=== PATIENT | female | born 1945 | race Caucasian/White ===

== ENCOUNTER → 2017-05-19 | Outpatient (CLI) | payer MEDICAID, MEDICARE ==
--- NOTE | 2017-05-19 10:34 | RADIOLOGY REPORT (SQ) ---
EXAM DESCRIPTION: CT CHEST WITHOUT COMPLETED DATE/TIME: 05/19/2017 9:55 am REASON FOR STUDY: THORACOC AORTIC ANEURYSM, WITHOUT RUPTURE I71.2 THORACIC AORTIC ANEURYSM, WITHOUT RUPTURE COMPARISON: 03/29/2016 TECHNIQUE: CT scan performed of the chest without intravenous contrast. Images reviewed with lung, soft tissue and bone windows. Reconstructed coronal and sagittal MPR images reviewed. All images st ored on PACS. All CT scanners at this facility use dose modulation, iterative reconstruction, and/or weight based d osing when appropriate to reduce radiation dose to as low as reasonably achievable (ALARA). [facility]: Dose Right [facility]: CareDose [facility]: Dose Right [facility]: Teradose 4D [facility]: Smart Mashable RADIATION DOSE: Up-to-date CT equipment and radiation dose reduction techniques were employed. CTDIv ol: 4.2 mGy. DLP: 158 mGy-cm. mGy. LIMITATIONS: No technical limitations. FINDINGS: LUNGS AND PLEURA: There is bilateral alveolar airspace disease in both upper lobes. This is new from prior study. This could be infectious or inflammatory. Pulmonary edema is thought to be less likely but not excluded. HILAR AND MEDIASTINAL STRUCTURES: No identified masses or abnormal nodes. No obvious aneurysm. HEART AND VASCULAR STRUCTURES: Heart size is stable. Aortic root is slightly dilated measured at 3.8 x 3.7 cm. This is unchanged. The patient has had prior coronary artery bypass grafting. Left subc lavian stent remains in place. Descending thoracic aorta demonstrates atherosclerotic change. There is mural thrombus. Largest diameter is 3.8 x 3.5 cm. UPPER ABDOMEN: No significant findings. Limited exam. THYROID AND OTHER SOFT TISSUES: No masses. No adenopathy. BONES: No significant finding. HARDWARE: As above. OTHER: No other significant findings. IMPRESSION: 1. Alveolar airspace disease in both upper lobes new from prior study. This could repre sent infectious or inflammatory less likely developing edema. 2. Atherosclerotic change in the thoracic aorta. Ascending aorta measures 3.8 x 3.7 cm. There is e ctasia of the descending thoracic aorta. Largest diameter is 3.8 x 3.5 cm. TECHNICAL DOCUMENTATION: JOB ID: [id number] Quality ID # [id number]: Final reports with documentation of one or more dose reduction techniques (e.g., Au tomated exposure control, adjustment of the mA and/or kV according to patient size, use of iterative reconstruction technique) 2010 1-4 [employer]- All Rights Reserved
== END ==
LOC: RAD 09:40
PROVIDERS: ATTEND Surgery
DX: I71.2 Thoracic aortic aneurysm, without rupture (principal)
CPT/HCPCS: 71250

== ENCOUNTER → 2017-05-26 | Outpatient (CLI) | payer MEDICARE, MEDICAID ==
--- NOTE | 2017-05-26 10:29 | WOMENS IMAGING REPORT ---
EXAM DESCRIPTION: BONE DENSITY HIP/SPINE COMPLETED DATE/TIME: 05/26/2017 10:07 am REASON FOR STUDY: SCREENING MAMMO; OSTEOPOROSIS Z12.31 ENCNTR SCREEN MAMMOGRAM FOR MALIGNANT NEOPLA SM OF DAMIEN M81.0 AGE-RELATED OSTEOPOROSIS W/O CURRENT PATHOLOGICAL FRAC COMPARISON: None. TECHNIQUE: Dual-Energy X-ray Absorptiometry (DEXA) of the AP Spine and Hip. LIMITATIONS: None. FINDINGS: LUMBAR SPINE: The bone mineral density (BMD) measured from L1-L4 in the AP projection correlates with a T-score of 1.3, which is normal as defined by the World Health Organization. HIP: The bone mineral density (BMD) measured in the left hip correlates with a T-score of -1.0 in the femo ral neck, which is osteopenia as defined by the World Health Organization. IMPRESSION: 1. LUMBAR SPINE: NORMAL. 2. HIP: OSTEOPENIA. COMMENT: The World Health Organization defines low BMD as follows: T-score: Normal: Greater than -1.0 Osteopenia: Between -1.0 and -2.5 Osteoporosis: Less than -2.5 without fractures Established osteoporosis: Less than -2.5 with fractures In general, you may wish to consider: Diagnosis Treatment Follow-up DEXA Normal BMD Prevention 2-3 years Osteopenia Prevention/Therapy 1-2 years Osteoporosis Therapy Yearly TECHNICAL DOCUMENTATION: JOB ID: [id number]- All Rights Reserved
== END ==
LOC: WI 08:05
PROVIDERS: ATTEND Physician Assistant
DX: Z12.31 Encounter for screening mammogram for malignant neoplasm of breast (principal); M81.0 Age-related osteoporosis without current pathological fracture
CPT/HCPCS: 77063; 77080; G0202; 77067

== ENCOUNTER 2017-11-22 10:54 | Inpatient (IN) | payer MEDICARE, MEDICAID ==
--- NOTE | 2017-11-22 11:22 | ER Document Report ---
ED Medical Screen (RME) - General Chief Complaint: Pain All Over Stated Complaint: LEFT SHOULDER PAIN Time Seen by Provider: 11/22/17 11:11 Notes: The patient is a 72-year-old female, past medical history CAD, prior CVA, hypertension, presents with left upper back pain for the past 2 days. She had similar symptoms when she said she had a heart attack. PE: Strong distal pulses. Tenderness over left rhomboid. 5/5 strength and sensation intact in all 4 extremities. Cranial Nerves intact. I have greeted and performed a rapid initial assessment of this patient. A comprehensive ED assessment and evaluation of the patient, analysis of test results and completion of the medical decision making process will be conducted by additional ED providers. TRAVEL OUTSIDE OF THE [place] IN LAST 30 DAYS: No Past Medical History - Social History Frequency of alcohol use: Occasional Drug Abuse: Marijuana - Past Medical History Cardiac Medical History: Reports: Hx Heart Attack - x5, bypass x 3, Hx Hypercholesterolemia, Hx Hypertension Endocrine Medical History: Reports: Hx Diabetes Mellitus Type 2 Renal/ Medical History: Denies: Hx Peritoneal Dialysis Past Surgical History: Reports: Hx Orthopedic Surgery - 4,5,6 disc removed Physical Exam - Vital signs Vitals: Temp Pulse Resp BP Pulse Ox 97.9 F 105 H 18 197/113 H 99 11/22/17 11:01 11/22/17 11:01 11/22/17 11:01 11/22/17 11:01 11/22/17 11:01 Course - Vital Signs Vital signs: Temp Pulse Resp BP Pulse Ox 97.9 F 105 H 18 197/113 H 99 11/22/17 11:01 11/22/17 11:01 11/22/17 11:01 11/22/17 11:01 11/22/17 11:01
[2017-11-22 11:46] LABS: ABSOLUTE BASOPHILS # (AUTO) 0.1 10^3/uL (0.0-0.2); ABSOLUTE EOSINOPHILS # (AUTO) 0.1 10^3/uL (0.0-0.6); ABSOLUTE LYMPHOCYTES (AUTO) 2.1 10^3/uL (0.5-4.7); ABSOLUTE MONOCYTES (AUTO) 0.7 10^3/uL (0.1-1.4); ABSOLUTE NEUT (AUTO) 5.2 10^3/uL (1.7-8.2); HEMATOCRIT 50.8 % (36.0-47.0); HEMOGLOBIN 17.2 g/dL (12.0-15.5); LYMPHOCYTES % (AUTO) 25.4 % (13-45); MEAN CORPUSCULAR HEMOGLOBIN 32.3 pg (27.0-33.4); MEAN CORPUSCULAR HGB CONC 33.8 g/dL (32.0-36.0); MEAN CORPUSCULAR VOLUME 96 fl (80-97); MONOCYTES % (AUTO) 8.4 % (3-13); PLATELET COUNT 306 10^3/uL (150-450); RED BLOOD COUNT 5.31 10^6/uL (3.72-5.28); RED CELL DISTRIBUTION WIDTH 14.1 % (11.5-14.0); SEGMENTED NEUTROPHILS % (AUTO) 64.2 % (42-78); TOTAL CELLS COUNTED % (AUTO) 100 %; WHITE BLOOD COUNT 8.1 10^3/uL (4.0-10.5)
[2017-11-22 12:07] LABS: ALANINE AMINOTRANSFERASE 20 U/L (9-52); ALBUMIN 4.6 g/dL (3.5-5.0); ALKALINE PHOSPHATASE 91 U/L (38-126); ANION GAP 13 (5-19); ASPARTATE AMINO TRANSFERASE 23 U/L (14-36); BILIRUBIN,DIRECT 0.5 mg/dL (0.0-0.4); BILIRUBIN,TOTAL 0.5 mg/dL (0.2-1.3); BLOOD UREA NITROGEN 19 mg/dL (7-20); CALCIUM 9.8 mg/dL (8.4-10.2); CARBON DIOXIDE 21 mmol/L (22-30); CHLORIDE 105 mmol/L (98-107); CREATINE KINASE 100 U/L (30-135); GLUCOSE 126 mg/dL (75-110); POTASSIUM 4.5 mmol/L (3.6-5.0); TOTAL PROTEIN 8.7 g/dL (6.3-8.2)
--- NOTE | 2017-11-22 12:08 | RADIOLOGY REPORT (SQ) ---
EXAM DESCRIPTION: CHEST 2 VIEWS COMPLETED DATE/TIME: 11/22/2017 11:43 am REASON FOR STUDY: chest pain COMPARISON: CT chest 05/19/2017 EXAM PARAMETERS: NUMBER OF VIEWS: two views TECHNIQUE: Digital Frontal and Lateral radiographic views of the chest acquired. RADIATION DOSE: NA LIMITATIONS: none FINDINGS: LUNGS AND PLEURA: No opacities, masses or pneumothorax. No pleural effusion. MEDIASTINUM AND HILAR STRUCTURES: No masses or contour abnormalities. HEART AND VASCULAR STRUCTURES: Heart normal size. No evidence for failure. BONES: No acute findings. HARDWARE: Old sternotomy and CABG OTHER: No other significant finding. IMPRESSION: NO ACUTE RADIOGRAPHIC FINDING IN THE CHEST. TECHNICAL DOCUMENTATION: JOB ID: [id number] [employer]- All Rights Reserved Reading location - IP/workstation name: [email or web address]
--- NOTE | 2017-11-22 13:55 | ER Document Report ---
ED General - General Chief Complaint: Pain All Over Stated Complaint: LEFT SHOULDER PAIN Time Seen by Provider: 11/22/17 11:11 Mode of Arrival: Ambulatory Information source: Patient Notes: 72-year-old female presents with complaints of left arm pain radiating across her chest just prior ot arrival. pt denies any fevers or chills, admit to a cough. TRAVEL OUTSIDE OF THE [place] IN LAST 30 DAYS: No - HPI Onset: Just prior to arrival Onset/Duration: Waxing and waning Quality of pain: Sharp Severity: Mild Pain Level: 1 Associated symptoms: Body/muscle aches, Chest pain Exacerbated by: Movement Relieved by: Denies Similar symptoms previously: No Recently seen / treated by doctor: No Past Medical History - Social History Smoking Status: Current Every Day Smoker Cigarette use (# per day): Yes Chew tobacco use (# tins/day): No Smoking Education Provided: No Frequency of alcohol use: Occasional Drug Abuse: Marijuana Family History: Reviewed & Not Pertinent Patient has suicidal ideation: No Patient has homicidal ideation: No - Past Medical History Cardiac Medical History: Reports: Hx Heart Attack - x5, bypass x 3, Hx Hypercholesterolemia, Hx Hypertension Endocrine Medical History: Reports: Hx Diabetes Mellitus Type 2 Renal/ Medical History: Denies: Hx Peritoneal Dialysis Past Surgical History: Reports: Hx Orthopedic Surgery - 4,5,6 disc removed Review of Systems - Review of Systems Notes: REVIEW OF SYSTEMS: CONSTITUTIONAL : Denies fever, chills, or sweats. Denies recent illness. EENT: Admits to neck pain rating to the shoulder blade CARDIOVASCULAR: admits to chest pain RESPIRATORY: admits t ocough . GASTROINTESTINAL: Denies abdominal pain or distention. Denies nausea, vomiting , or diarrhea. Denies blood in vomitus, stools, or per rectum. Denies black, tarry stools. Denies constipation. GENITOURINARY: Denies difficulty urinating, painful urination, burning, frequency, blood in urine, or discharge. FEMALE GENITOURINARY: Denies vaginal bleeding, heavy or abnormal periods, irregular periods. Denies vaginal discharge or odor. MUSCULOSKELETAL: Denies back or neck pain or stiffness. Denies joint pain or swelling. SKIN: Denies rash, lesions or sores. HEMATOLOGIC : Denies easy bruising or bleeding. LYMPHATIC: Denies swollen, enlarged glands. NEUROLOGICAL: Denies confusion or altered mental status. Denies passing out or loss of consciousness. Denies dizziness or lightheadedness. Denies headache. Denies weakness or paralysis or loss of use of either side. Denies problems with gait or speech. Denies sensory loss, numbness, or tingling. Denies seizures. PSYCHIATRIC: Denies anxiety or stress. Denies depression, suicidal ideation, or homicidal ideation. ALL OTHER SYSTEMS REVIEWED AND NEGATIVE. PHYSICAL EXAMINATION: GENERAL: Well-appearing, well-nourished and in no acute distress. HEAD: Atraumatic, normocephalic. EYES: Pupils equal round and reactive to light, extraocular movements intact, conjunctiva are normal. ENT: Nares patent, oropharynx clear without exudates. Moist mucous membranes. NECK: Normal range of motion, supple without lymphadenopathy there is tenderness upon palpation of the cervical region rating to the scapula LUNGS: Breath sounds clear to auscultation bilaterally and equal. No wheezes rales or rhonchi. HEART: Regular rate and rhythm without murmurs ABDOMEN: Soft, nontender, nondistended abdomen. No guarding, no rebound. No masses appreciated. Female : deferred Musculoskeletal: Normal range of motion, no pitting or edema. No cyanosis. NEUROLOGICAL: Cranial nerves grossly intact. Normal speech, normal gait. Normal sensory, motor exams PSYCH: Normal mood, normal affect. SKIN: Warm, Dry, normal turgor, no rashes or lesions noted. Dictation was performed using [employer] voice recognition software Physical Exam - Vital signs Vitals: Temp Pulse Resp BP Pulse Ox 97.9 F 105 H 18 197/113 H 99 11/22/17 11:01 11/22/17 11:01 11/22/17 11:01 11/22/17 11:01 11/22/17 11:01 Course - Re-evaluation Re-evalutation: 11/22/17 16:27 Patient's presentation is most consistent acute coronary syndrome, patient will be observed in the hospital overnight given her history and complaints. Patient otherwise is well-appearing no distress 11/22/17 16:33 - Vital Signs Vital signs: Temp Pulse Resp BP Pulse Ox 97.9 F 105 H 15 173/88 H 98 11/22/17 11:01 11/22/17 11:01 11/22/17 13:01 11/22/17 14:01 11/22/17 14:01 - Laboratory Result Diagrams: 11/22/17 11:30 11/22/17 11:30 Laboratory results interpreted by me: 11/22/17 11/22/17 11:30 11:30 RBC 5.31 H Hgb 17.2 H Hct 50.8 H RDW 14.1 H Carbon Dioxide 21 L Est GFR (Non-Af Amer) 57 L Glucose 126 H Direct Bilirubin 0.5 H Total Protein 8.7 H - Diagnostic Test Radiology reviewed: Image reviewed - Chest x-ray two-view no acute abnormality, Reports reviewed - EKG Interpretation by Me EKG shows normal: Sinus rhythm, [place], Intervals, QRS Complexes Discharge - Discharge Clinical Impression: Chest pain Qualifiers: Chest pain type: unspecified Qualified Code(s): R07.9 - Chest pain, unspecified Condition: Stable Disposition: ADMITTED OBSERVATION Admitting Provider: Adame Unit Admitted: Telemetry
--- NOTE | 2017-11-22 14:47 | RADIOLOGY REPORT (SQ) ---
EXAM DESCRIPTION: CTA CHEST COMPLETED DATE/TIME: 11/22/2017 2:26 pm REASON FOR STUDY: hx thoracic anuerysm COMPARISON: CT chest 05/19/2017, 03/29/2016 TECHNIQUE: CT scan of the chest performed using helical scanning technique with dynamic intravenous contrast injection. Images reviewed with lung, soft tissue and bone windows. Reconstructed coronal and sagittal MPR images reviewed. Additional 3 dimensional post-processing performed to develop Maximal Intensity Projection images (HI P). All images stored on PACS. All CT scanners at this facility use dose modulation, iterative reconstruction, and/or weight based d osing when appropriate to reduce radiation dose to as low as reasonably achievable (ALARA). [facility]: Dose Right [facility]: CareDose [facility]: Dose Right [facility]: Teradose 4D [facility]: BlueMessaging CONTRAST TYPE AND DOSE: contrast/concentration: Isovue 370.00 mg/ml; Total Contrast Delivered: 64.0 ml; Total Saline Delivered: 90.0 ml Contrast bolus optimized for the pulmonary arteries. Limited contrast enhancement of the thoracic ao rta. RENAL FUNCTION: Creatinine 0.96 RADIATION DOSE: CT Rad equipment meets quality standard of care and radiation dose reduction techniq ues were employed. CTDIvol: 14.3 - 19.8 mGy. DLP: 556 mGy-cm. . LIMITATIONS: None. FINDINGS: LUNGS AND PLEURA: In the right lower lobe, a malignant appearing 2.2 x 1.9 cm mass is pres ent, tapped between the anterior basal and medial basal bronchi and vessels. This is best shown on a xial image 82 and coronal image 35. Elsewhere in the lungs, there is bilateral upper lobe mild ground-glass opacity which could be seen i n edema or pneumonitis. Bandlike scarring is present in both posterior costophrenic sulci, stable. No pleural effusions. No pneumothorax. AORTA AND GREAT VESSELS: Left subclavian artery stent is present. Due to the limited contrast bolus, it is difficult to discern whether this stent is patent on today's exam. Ascending thoracic aorta 3 .7 cm in diameter, stable. Proximal and mid descending thoracic aorta 3 cm in diameter, above the ao rtic hiatus, greatest transverse diameter is 3.5 cm in size, similar compared to previous exams. Dis june thoracic aorta has a rind of mural thrombus without dissection. HEART: No pericardial effusion. Moderate coronary artery calcifications. Calcified aortic valve. Ol d sternotomy for CABG. PULMONARY ARTERIES: No emboli visualized in the main pulmonary arteries or the segmental branches. HILAR AND MEDIASTINAL STRUCTURES: Small precarinal and AP window lymph nodes are present less than 10 mm in short axis HARDWARE: Old sternotomy for CABG UPPER ABDOMEN: Right renal artery stent incompletely included in the field of view THYROID AND OTHER SOFT TISSUES: No masses. No adenopathy. BONES: No acute or significant finding. 3D MIPS: Confirm above findings. OTHER: No other significant finding. IMPRESSION: 2.2 x 1.9 cm mass in the lower right hilum/right lower lobe worrisome for malignancy Minimal ground-glass opacity in the upper lobes bilaterally, question pneumonitis or very mild pulmon sneha edema Ectatic distal thoracic aorta with a rind of mural thrombus. This is similar compared to previous st udies. COMMENT: Quality ID # [id number]: Final reports with documentation of one or more dose reduction techniques (e.g., Automated exposure control, adjustment of the mA and/or kV according to patient size, use of iterative reconstruction technique) TECHNICAL DOCUMENTATION: JOB ID: [id number] [employer]- All Rights Reserved Reading location - IP/workstation name: [facility]
[2017-11-22] MEDS ORDERED: ACETAMINOPHEN 325 MG TABLET PO PRN (15:02)
[2017-11-22] MEDS ORDERED: HYDRALAZINE HCL INJ/PF 20 MG/1 ML SDV IV PRN (15:08)
[2017-11-22] MEDS: LANSOPRAZOLE 15 MG TAB.RAP.DR PO SCH (16:08)
[2017-11-22] MEDS: IPRATROPIUM/ALBUTEROL 0.5-2.5 MG/3 ML AMPUL NEB SCH ×3 (16:08→23:52)
[2017-11-22 16:40] LABS: CREATINE KINASE MB 1.39 ng/mL (<4.55); TROPONIN I 0.013 ng/mL
--- NOTE | 2017-11-22 17:18 | PDOC CONSULTATION ---
Consultation Consult Date: 11/22/17 Attending physician:: DANE SMITH Consult reason:: Left lung mass History of Present Illness Admission Date/PCP: 11/22/17 14:31 DANE SMITH MD Patient complains of: Chest pain, SOB History of Present Illness: MIGUEL A WINSTON is a 72 year old female with known history of COPD, CAD, peripheral vascular disease, presents with 3 day history of chest pain, describes it under bilateral rib cage, viselike, also some pain in the left scapular area. She had a CT of the chest done, which indicated a 2.2 x 1.9 cm mass in the right lower lobe, of note she does have known history of aneurysm, and she had a CT of the chest to follow-up that in May 2017, and this area was not noted on that, I reviewed the images myself and did not see any evidence of that mass on that image. Of note, she does have elevated BP this morning, and she did have some family stressors ongoing over the last few days. Prior to this she did not really have continuous pain anywhere else, but she has had episodes of chest pain in the past that was noted to be cardiac in nature. She has not had any weight loss. No hemoptysis. Past Medical History Cardiac Medical History: Reports: Congestive Heart Failure, Coronary Artery Disease, Myocardial Infarction - x5, bypass x 3, Hyperlipidema, Hypertension, Peripheral Vascular Disease Pulmonary Medical History: Reports: Chronic Obstructive Pulmonary Disease (COPD) , Pneumonia Neurological Medical History: Reports: Ischemic CVA Endocrine Medical History: Reports: Diabetes Mellitus Type 2 GI Medical History: Reports: Gastroesophageal Reflux Disease Musculoskeltal Medical History: Reports: Arthritis Psychiatric Medical History: Reports: Depression Past Surgical History Past Surgical History: Reports: Orthopedic Surgery - 4,5,6 disc removed Social History Smoking Status: Current Every Day Smoker Cigarettes Packs Per Day: 2 Number of Years Smokin Frequency of Alcohol Use: None Hx Recreational Drug Use: No Drugs: None Hx Prescription Drug Abuse: No Family History Family History: Reviewed & Not Pertinent Parental Family History Reviewed: Yes Children Family History Reviewed: Yes Sibling(s) Family History Reviewed.: Yes Medication/Allergy Home Medications: Aspirin [Aspirin EC] 81 mg PO DAILY 11/22/17 Atorvastatin Calcium 20 mg PO DAILY 11/22/17 Carvedilol [Coreg 6.25 mg Tablet] 6.25 mg PO Q12 11/22/17 Clopidogrel Bisulfate [Plavix 75 mg Tablet] 75 mg PO DAILY 11/22/17 Levothyroxine Sodium 112 mcg PO DAILY 11/22/17 Metoprolol Tartrate 12.5 mg PO DAILY 11/22/17 Review of Systems Constitutional: PRESENT: fatigue, weakness Cardiovascular: PRESENT: chest pain, dyspnea on exertion Respiratory: PRESENT: dyspnea Gastrointestinal: ABSENT: abdominal pain, constipation, diarrhea, hematemesis, hematochezia, nausea, vomiting Musculoskeletal: PRESENT: back pain Neurological: ABSENT: abnormal gait, abnormal speech, confusion, dizziness, focal weakness, syncope Endocrine: ABSENT: cold intolerance, heat intolerance, polydipsia, polyuria Physical Exam Vital Signs: Temp Pulse Resp BP Pulse Ox 97.9 F 105 H 18 153/136 H 98 11/22/17 11:01 11/22/17 11:01 11/22/17 16:49 11/22/17 16:49 11/22/17 16:49 General appearance: PRESENT: no acute distress, well-developed, well-nourished Head exam: PRESENT: atraumatic, normocephalic Eye exam: PRESENT: conjunctiva pink, EOMI, PERRLA. ABSENT: scleral icterus Ear exam: PRESENT: normal external ear exam Mouth exam: PRESENT: moist, tongue midline Neck exam: ABSENT: carotid bruit, JVD, lymphadenopathy, thyromegaly Respiratory exam: PRESENT: clear to auscultation nasreen. ABSENT: rales, rhonchi, wheezes Cardiovascular exam: PRESENT: RRR. ABSENT: diastolic murmur, rubs, systolic murmur Pulses: PRESENT: normal dorsalis pedis pul Vascular exam: PRESENT: normal capillary refill GI/Abdominal exam: PRESENT: normal bowel sounds, soft. ABSENT: distended, guarding, mass, organolmegaly, rebound, tenderness Rectal exam: PRESENT: deferred Extremities exam: PRESENT: full ROM. ABSENT: calf tenderness, clubbing, pedal edema Neurological exam: PRESENT: alert, awake, oriented to person, oriented to place , oriented to time, oriented to situation, CN II-XII grossly intact. ABSENT: motor sensory deficit Psychiatric exam: PRESENT: appropriate affect, normal mood. ABSENT: homicidal ideation, suicidal ideation Skin exam: PRESENT: dry, intact, warm. ABSENT: cyanosis, rash Results Laboratory Results: 11/22/17 15:45 TSH 41.30 H 11/22/17 11/22/17 15:45 15:45 Creatine Kinase 110 CK-MB (CK-2) 1.39 Troponin I 0.013 Impressions: Chest X-Ray 11/22/17 11:19 IMPRESSION: NO ACUTE RADIOGRAPHIC FINDING IN THE CHEST. Chest/Abdomen CTA 11/22/17 13:58 IMPRESSION: 2.2 x 1.9 cm mass in the lower right hilum/right lower lobe worrisome for malignancy Minimal ground-glass opacity in the upper lobes bilaterally, question pneumonitis or very mild pulmonary edema Ectatic distal thoracic aorta with a rind of mural thrombus. This is similar compared to previous studies. Status: Image reviewed by me Assessment & Plan - Diagnosis (1) Lung mass Is this a current diagnosis for this admission?: Yes Plan: Patient with newly noted right lower lobe mass, given her strong smoking history , concerning for primary lung cancer, she is having chest pain, I do not believe this is related to the lesion itself, may be cardiac or lung in origin, possibly pneumonitis versus a pneumonia. All of these possibilities have to be treated, would agree with steroid and/or antibiotic use along with continued cardiac evaluation. Once this is stabilized, I believe we can proceed forward with consideration of procedure for the lung mass, would consider primary bronchoscopy. As outpatient we can also order a PET CT to further evaluate and fully stage. Ultimately she would benefit from an MRI of the brain to complete staging. However all of this can be done once the acute chest pain is evaluated and taken care of. I will order some oxycodone for her. - Time Time Spent: Greater than 70 Minutes - Inpatient Certification Based on my medical assessment, after consideration of the patient's comorbidities, presenting symptoms, or acuity I expect that the services needed warrant INPATIENT care.: Yes I certify that my determination is in accordance with my understanding of Medicare's requirements for reasonable and necessary INPATIENT services [42 CFR 412.3e].: Yes Medical Necessity: Need Close Monitoring Due to Risk of Patient Decompensation, Need For Continuous Telemetry Monitoring, Need for Pain Control, Risk of Complication if Not Cared For in Hospital
--- NOTE | 2017-11-22 17:29 | PDOC H&P ---
History of Present Illness Admission Date/PCP: 11/22/17 14:31 DANE SMITH MD Patient complains of: Left-sided chest pain History of Present Illness: MIGUEL A WINSTON is a 72 year old female This is a 72-year-old female with a significant history of the coronary artery disease status post stent placements and status post bypass surgery very noncompliance used to see a [facility] and also history of the significant carotid artery disease status post carotid endarterectomyAnd a history of peripheral vascular disease status post femoropopliteal bypassHistory of the COPD and a continued smoker despite off so many times discussed with the patient and the daughter about multiple comorbidity with continued smoking causing the more complications but patients pretty much do not want to quit the smokingHistory of the thoracic aneurysm and currently [facility] [place] [facility] with the complaining of left mid back and chest pain and feel like when patient had a heart attacks in the past Initial workup including the EKG and cardiac enzymes 1 is negative and patient have a CT angiogram was done which is negative for any change in the thoracic aneurysm but patient have a new lung mass which is not that the CT of the chest in May 2017 Patient is currently denied any chest pain denied any shortness of the breath pt is very depressd and anxoius due to recent in family and not taking med as rx Past Medical History Cardiac Medical History: Reports: Congestive Heart Failure, Coronary Artery Disease, Myocardial Infarction - x5, bypass x 3, Hyperlipidema, Hypertension, Peripheral Vascular Disease Pulmonary Medical History: Reports: Chronic Obstructive Pulmonary Disease (COPD) , Pneumonia Neurological Medical History: Reports: Ischemic CVA Endocrine Medical History: Reports: Diabetes Mellitus Type 2 GI Medical History: Reports: Gastroesophageal Reflux Disease Musculoskeltal Medical History: Reports: Arthritis Psychiatric Medical History: Reports: Depression Past Surgical History Past Surgical History: Reports: Orthopedic Surgery - 4,5,6 disc removed Social History Smoking Status: Current Every Day Smoker Family History Family History: None, Reviewed & Not Pertinent Parental Family History Reviewed: Yes Children Family History Reviewed: Yes Sibling(s) Family History Reviewed.: Yes Medication/Allergy Home Medications: Aspirin [Aspirin EC] 81 mg PO DAILY 11/22/17 Atorvastatin Calcium 20 mg PO DAILY 11/22/17 Carvedilol [Coreg 6.25 mg Tablet] 6.25 mg PO Q12 11/22/17 Clopidogrel Bisulfate [Plavix 75 mg Tablet] 75 mg PO DAILY 11/22/17 Levothyroxine Sodium 112 mcg PO DAILY 11/22/17 Metoprolol Tartrate 12.5 mg PO DAILY 11/22/17 Review of Systems Constitutional: PRESENT: fatigue, weakness. ABSENT: chills, fever(s), headache( s), weight gain, weight loss Eyes: ABSENT: visual disturbances Ears: ABSENT: hearing changes Cardiovascular: PRESENT: chest pain. ABSENT: dyspnea on exertion, edema, orthropnea, palpitations Respiratory: ABSENT: cough, hemoptysis Gastrointestinal: ABSENT: abdominal pain, constipation, diarrhea, hematemesis, hematochezia, nausea, vomiting Genitourinary: ABSENT: dysuria, hematuria Musculoskeletal: ABSENT: joint swelling Integumentary: ABSENT: rash, wounds Neurological: ABSENT: abnormal gait, abnormal speech, confusion, dizziness, focal weakness, syncope Psychiatric: ABSENT: anxiety, depression, homidical ideation, suicidal ideation Endocrine: ABSENT: cold intolerance, heat intolerance, menstrual abnormalities, polydipsia, polyuria Hematologic/Lymphatic: ABSENT: easy bleeding, easy bruising, lymphadenopathy Physical Exam Vital Signs: Temp Pulse Resp BP Pulse Ox 97.9 F 105 H 15 173/88 H 98 11/22/17 11:01 11/22/17 11:01 11/22/17 13:01 11/22/17 14:01 11/22/17 14:01 General appearance: PRESENT: no acute distress, well-developed, well-nourished Head exam: PRESENT: atraumatic, normocephalic Eye exam: PRESENT: conjunctiva pink, EOMI, PERRLA. ABSENT: scleral icterus Ear exam: PRESENT: normal external ear exam Mouth exam: PRESENT: moist, tongue midline Neck exam: PRESENT: full ROM. ABSENT: carotid bruit, JVD, lymphadenopathy, thyromegaly Respiratory exam: PRESENT: chest wall tenderness, clear to auscultation nasreen Cardiovascular exam: PRESENT: RRR. ABSENT: diastolic murmur, rubs, systolic murmur Pulses: PRESENT: normal dorsalis pedis pul, +2 pedal pulses bilateral Vascular exam: PRESENT: normal capillary refill GI/Abdominal exam: PRESENT: normal bowel sounds, soft. ABSENT: distended, guarding, mass, organolmegaly, rebound, tenderness Rectal exam: PRESENT: deferred Extremities exam: ABSENT: pedal edema Neurological exam: PRESENT: alert, awake, oriented to person, oriented to place , oriented to time, oriented to situation, CN II-XII grossly intact. ABSENT: motor sensory deficit Psychiatric exam: PRESENT: appropriate affect, normal mood. ABSENT: homicidal ideation, suicidal ideation Skin exam: PRESENT: dry, intact, warm. ABSENT: cyanosis, rash Results Impressions: Chest X-Ray 11/22/17 11:19 IMPRESSION: NO ACUTE RADIOGRAPHIC FINDING IN THE CHEST. Chest/Abdomen CTA 11/22/17 13:58 IMPRESSION: 2.2 x 1.9 cm mass in the lower right hilum/right lower lobe worrisome for malignancy Minimal ground-glass opacity in the upper lobes bilaterally, question pneumonitis or very mild pulmonary edema Ectatic distal thoracic aorta with a rind of mural thrombus. This is similar compared to previous studies. Assessment & Plan - Diagnosis (1) Chest pain Qualifiers: Chest pain type: unspecified Qualified Code(s): R07.9 - Chest pain, unspecified Is this a current diagnosis for this admission?: Yes Plan: The multiple comorbidity admit the patient in IMCU consult the cardiology rule out the acute coronary syndrome (2) Coronary artery disease Qualifiers: Coronary Disease-Associated Artery/Lesion type: unspecified vessel or lesion type Associated angina: without angina Is this a current diagnosis for this admission?: Yes Plan: Patient had a history of the stent placements and also history of the bypass surgery in 2011 patients in my record last seen in 2016 at the [facility] and had a stress test and echo was done was all stable with the patient's EF was 25-30 persons (3) Thoracic aneurysm without mention of rupture Qualifiers: Presence of rupture: without rupture Qualified Code(s): I71.2 - Thoracic aortic aneurysm, without rupture Is this a current diagnosis for this admission?: Yes Plan: Currently CT angiogram is stable (4) Lung mass Is this a current diagnosis for this admission?: Yes Plan: We consult the pulmonary and oncology for further evaluations (5) Chronic obstructive pulmonary disease Qualifiers: COPD type: unspecified COPD Qualified Code(s): J44.9 - Chronic obstructive pulmonary disease, unspecified Is this a current diagnosis for this admission?: Yes Plan: Continues to nebulizer treatments (6) Peripheral vascular disease Is this a current diagnosis for this admission?: Yes Plan: Patient's currently followed at [facility] (7) Carotid artery disease Qualifiers: Laterality: unspecified laterality Qualified Code(s): I77.9 - Disorder of arteries and arterioles, unspecified Is this a current diagnosis for this admission?: Yes Plan: Status post surgery currently follow vascular surgery in [place] (8) Cerebrovascular disease Is this a current diagnosis for this admission?: Yes Plan: Continues to aspirin Plavix (9) Renal artery stenosis Is this a current diagnosis for this admission?: Yes Plan: Status post stent placement at [place] last year (10) Hypertension Qualifiers: Hypertension type: essential hypertension Qualified Code(s): I10 - Essential (primary) hypertension Is this a current diagnosis for this admission?: Yes (11) Hyperlipidemia Qualifiers: Hyperlipidemia type: unspecified Qualified Code(s): E78.5 - Hyperlipidemia , unspecified Is this a current diagnosis for this admission?: Yes Plan: We will check the LDL (12) Congestive heart failure Qualifiers: Heart failure type: systolic Heart failure chronicity: chronic Qualified Code(s): I50.22 - Chronic systolic (congestive) heart failure Is this a current diagnosis for this admission?: Yes Plan: Patient's last echo in my record was 30% will consult the cardiology (13) Non compliance with medical treatment Is this a current diagnosis for this admission?: Yes Plan: pt is very non complience and not taking med since last 1 wk and also cont smoke and not f/u consulted as need - Time Time Spent: 30 to 50 Minutes Medications reviewed and adjusted accordingly: Yes Anticipated discharge: Other Within: Other - Inpatient Certification Medical Necessity: Need Close Monitoring Due to Risk of Patient Decompensation Post Hospital Care: D/C [employer] Documentation - Plan Summary Plan Summary: Discussed with the patient and the daughter regarding the patient's current conditions and coordinate care d/w pt and daughter and pt want to dnr/dni
[2017-11-22] MEDS: OXYCODONE HCL IR 5 MG TABLET PO PRN (18:09)
[2017-11-22] MEDS: AMLODIPINE BESYLATE 5 MG TABLET PO SCH (18:17)
--- NOTE | 2017-11-22 21:40 | EKG REPORT ---
SEVERITY:- ABNORMAL ECG - SINUS RHYTHM BIATRIAL ABNORMALITIES INFERIOR INFARCT, AGE INDETERMINATE : Confirmed by: Dom Rodriguez 22-Nov-2017 21:40:09
[2017-11-22] MEDS ORDERED: LOSARTAN POTASSIUM 25 MG TABLET PO SCH (22:00)
[2017-11-22 22:03] LABS: CREATINE KINASE MB 1.67 ng/mL (<4.55); TROPONIN I 0.017 ng/mL
[2017-11-22] MEDS: CARVEDILOL 6.25 MG TABLET PO SCH (22:24)
[2017-11-22] MEDS: HEPARIN SOD (PORCINE) 5,000 UNIT/ML 1 ML SYRINGE SUBCUT SCH (22:25)
[2017-11-22] MEDS: CEFEPIME 1 GM/D5W RTU 1 GM/50 ML RTUPB IV SCH (22:25)
[2017-11-23] MEDS: OXYCODONE HCL IR 5 MG TABLET PO PRN (02:18)
[2017-11-23 03:46] LABS: ALANINE AMINOTRANSFERASE 28 U/L (9-52); ALBUMIN 3.9 g/dL (3.5-5.0); ALKALINE PHOSPHATASE 67 U/L (38-126); ANION GAP 12 (5-19); ASPARTATE AMINO TRANSFERASE 16 U/L (14-36); BILIRUBIN,DIRECT 0.3 mg/dL (0.0-0.4); BILIRUBIN,TOTAL 0.3 mg/dL (0.2-1.3); BLOOD UREA NITROGEN 19 mg/dL (7-20); CALCIUM 9.3 mg/dL (8.4-10.2); CARBON DIOXIDE 20 mmol/L (22-30); CHLORIDE 107 mmol/L (98-107); CREATINE KINASE 109 U/L (30-135); GLUCOSE 113 mg/dL (75-110); POTASSIUM 4.4 mmol/L (3.6-5.0); SODIUM 138.9 mmol/L (137-145); TOTAL PROTEIN 6.6 g/dL (6.3-8.2)
[2017-11-23 03:58] LABS: CREATINE KINASE MB 1.58 ng/mL (<4.55); TROPONIN I 0.016 ng/mL
[2017-11-23] MEDS: IPRATROPIUM/ALBUTEROL 0.5-2.5 MG/3 ML AMPUL NEB SCH ×6 (04:26→23:57)
[2017-11-23 04:59] LABS: ABSOLUTE BASOPHILS # (AUTO) 0.1 10^3/uL (0.0-0.2); ABSOLUTE EOSINOPHILS # (AUTO) 0.1 10^3/uL (0.0-0.6); ABSOLUTE LYMPHOCYTES (AUTO) 1.8 10^3/uL (0.5-4.7); ABSOLUTE MONOCYTES (AUTO) 0.6 10^3/uL (0.1-1.4); ABSOLUTE NEUT (AUTO) 3.2 10^3/uL (1.7-8.2); BASOPHILS % (AUTO) 1.1 % (0-2); HEMATOCRIT 42.2 % (36.0-47.0); LYMPHOCYTES % (AUTO) 31.2 % (13-45); MEAN CORPUSCULAR HEMOGLOBIN 32.8 pg (27.0-33.4); MEAN CORPUSCULAR HGB CONC 34.1 g/dL (32.0-36.0); MEAN CORPUSCULAR VOLUME 96 fl (80-97); MONOCYTES % (AUTO) 10.5 % (3-13); PLATELET COUNT 262 10^3/uL (150-450); RED BLOOD COUNT 4.39 10^6/uL (3.72-5.28); SEGMENTED NEUTROPHILS % (AUTO) 56.2 % (42-78); TOTAL CELLS COUNTED % (AUTO) 100 %; WHITE BLOOD COUNT 5.6 10^3/uL (4.0-10.5)
[2017-11-23 05:16] LABS: HEMOGLOBIN 14.4 g/dL (12.0-15.5)
[2017-11-23] MEDS: HEPARIN SOD (PORCINE) 5,000 UNIT/ML 1 ML SYRINGE SUBCUT SCH ×3 (06:09→21:35)
[2017-11-23] MEDS: LEVOTHYROXINE SODIUM 0.112 MG TABLET PO SCH (06:12)
[2017-11-23] MEDS: LANSOPRAZOLE 15 MG TAB.RAP.DR PO SCH ×2 (06:12→17:03)
--- NOTE | 2017-11-23 08:09 | PDOC PROGRESS REPORT ---
Subjective Progress Note for:: 11/23/17 Subjective:: Patient states that her pain is half as bad as it was yesterday. Pain is deep in the Left lower posterior chest and across anterior upper ribcage. She is hungry and is awaiting breakfast. She states that every time she gets out of bed, her blood pressure goes john high and that they are "working on this." Reason For Visit: CHEST PAIN/LUNG MASS Physical Exam Vital Signs: Temp Pulse Resp BP Pulse Ox 97.9 F 67 18 104/81 97 11/23/17 04:09 11/23/17 07:00 11/23/17 04:27 11/23/17 04:09 11/23/17 04:27 Intake & Output 11/22/17 11/23/17 11/24/17 06:59 06:59 06:59 Intake Total 560 Balance 560 Weight 64.1 kg General appearance: PRESENT: no acute distress Respiratory exam: PRESENT: clear to auscultation nasreen, unlabored Cardiovascular exam: PRESENT: other - Obscured but appears regular. GI/Abdominal exam: PRESENT: soft. ABSENT: tenderness Neurological exam: PRESENT: alert, awake. ABSENT: motor sensory deficit Psychiatric exam: PRESENT: appropriate affect Skin exam: PRESENT: normal color Results Laboratory Results: 11/23/17 04:40 11/23/17 03:26 11/22/17 11/23/17 11/23/17 15:45 03:26 03:26 WBC Cancelled RBC Cancelled Hgb Cancelled Hct Cancelled MCV Cancelled MCH Cancelled MCHC Cancelled RDW Cancelled Plt Count Cancelled Seg Neutrophils % Cancelled Lymphocytes % Cancelled Monocytes % Cancelled Eosinophils % Cancelled Basophils % Cancelled Absolute Neutrophils Cancelled Absolute Lymphocytes Cancelled Absolute Monocytes Cancelled Absolute Eosinophils Cancelled Absolute Basophils Cancelled Sodium 138.9 Potassium 4.4 Chloride 107 Carbon Dioxide 20 L Anion Gap 12 BUN 19 Creatinine 0.96 Est GFR ( Amer) > 60 Est GFR (Non-Af Amer) 57 L Glucose 113 H Calcium 9.3 Total Bilirubin 0.3 AST 16 ALT 28 Alkaline Phosphatase 67 Total Protein 6.6 Albumin 3.9 TSH 41.30 H 11/23/17 04:40 WBC 5.6 RBC 4.39 Hgb 14.4 D Hct 42.2 MCV 96 MCH 32.8 MCHC 34.1 RDW 14.0 Plt Count 262 Seg Neutrophils % 56.2 Lymphocytes % 31.2 Monocytes % 10.5 Eosinophils % 1.0 Basophils % 1.1 Absolute Neutrophils 3.2 Absolute Lymphocytes 1.8 Absolute Monocytes 0.6 Absolute Eosinophils 0.1 Absolute Basophils 0.1 Sodium Potassium Chloride Carbon Dioxide Anion Gap BUN Creatinine Est GFR ( Amer) Est GFR (Non-Af Amer) Glucose Calcium Total Bilirubin AST ALT Alkaline Phosphatase Total Protein Albumin TSH 11/22/17 11/22/17 11/22/17 15:45 15:45 21:20 Creatine Kinase 110 113 CK-MB (CK-2) 1.39 Troponin I 0.013 NT-Pro-B Natriuret Pep 11/22/17 11/23/17 11/23/17 21:20 03:26 03:26 Creatine Kinase 109 CK-MB (CK-2) 1.67 1.58 Troponin I 0.017 0.016 NT-Pro-B Natriuret Pep 3290 H Impressions: Chest X-Ray 11/22/17 11:19 IMPRESSION: NO ACUTE RADIOGRAPHIC FINDING IN THE CHEST. Chest/Abdomen CTA 11/22/17 13:58 IMPRESSION: 2.2 x 1.9 cm mass in the lower right hilum/right lower lobe worrisome for malignancy Minimal ground-glass opacity in the upper lobes bilaterally, question pneumonitis or very mild pulmonary edema Ectatic distal thoracic aorta with a rind of mural thrombus. This is similar compared to previous studies. Assessment & Plan - Diagnosis (1) Lung mass Is this a current diagnosis for this admission?: Yes Plan: Agree with plans for bronchoscopy once cardiac status is stable. Further staging can be performed as outpatient. (2) Chest pain Qualifiers: Chest pain type: unspecified Qualified Code(s): R07.9 - Chest pain, unspecified Is this a current diagnosis for this admission?: Yes Plan: Improving. SHe remains on antibiotics and pain medications. - Plan Summary Plan Summary: Will continue to follow. Please call with concerns.
--- NOTE | 2017-11-23 08:24 | PDOC PROGRESS REPORT ---
Subjective Progress Note for:: 11/23/17 Subjective:: Patient is currently doing well in the chest wall pain is all getting better Patient's denied any short of breath denied any headache denied any dizziness Patient's blood pressure is coming down to the 110 range Patient's denied any blood in the stools no black stools Reason For Visit: CHEST PAIN/LUNG MASS Physical Exam Vital Signs: Temp Pulse Resp BP Pulse Ox 98.1 F 75 16 121/53 L 100 11/23/17 08:03 11/23/17 08:03 11/23/17 08:03 11/23/17 08:03 11/23/17 08:03 Intake & Output 11/22/17 11/23/17 11/24/17 06:59 06:59 06:59 Intake Total 560 Balance 560 Weight 64.1 kg General appearance: PRESENT: no acute distress, well-developed, well-nourished Head exam: PRESENT: atraumatic, normocephalic Eye exam: PRESENT: conjunctiva pink, EOMI, PERRLA. ABSENT: scleral icterus Ear exam: PRESENT: normal external ear exam Mouth exam: PRESENT: moist, tongue midline Neck exam: PRESENT: full ROM. ABSENT: carotid bruit, JVD, lymphadenopathy, thyromegaly Respiratory exam: PRESENT: clear to auscultation nasreen Cardiovascular exam: PRESENT: RRR. ABSENT: diastolic murmur, rubs, systolic murmur Pulses: PRESENT: normal dorsalis pedis pul, +2 pedal pulses bilateral Vascular exam: PRESENT: normal capillary refill GI/Abdominal exam: PRESENT: normal bowel sounds, soft. ABSENT: distended, guarding, mass, organolmegaly, rebound, tenderness Rectal exam: PRESENT: deferred Extremities exam: ABSENT: pedal edema Musculoskeletal exam: PRESENT: ambulatory Neurological exam: PRESENT: alert, awake, oriented to person, oriented to place , oriented to time, oriented to situation, CN II-XII grossly intact. ABSENT: motor sensory deficit Psychiatric exam: PRESENT: appropriate affect, normal mood. ABSENT: homicidal ideation, suicidal ideation Skin exam: PRESENT: dry, intact, warm. ABSENT: cyanosis, rash Results Laboratory Results: 11/23/17 04:40 11/23/17 03:26 11/22/17 11/23/17 11/23/17 15:45 03:26 03:26 WBC Cancelled RBC Cancelled Hgb Cancelled Hct Cancelled MCV Cancelled MCH Cancelled MCHC Cancelled RDW Cancelled Plt Count Cancelled Seg Neutrophils % Cancelled Lymphocytes % Cancelled Monocytes % Cancelled Eosinophils % Cancelled Basophils % Cancelled Absolute Neutrophils Cancelled Absolute Lymphocytes Cancelled Absolute Monocytes Cancelled Absolute Eosinophils Cancelled Absolute Basophils Cancelled Sodium 138.9 Potassium 4.4 Chloride 107 Carbon Dioxide 20 L Anion Gap 12 BUN 19 Creatinine 0.96 Est GFR ( Amer) > 60 Est GFR (Non-Af Amer) 57 L Glucose 113 H Calcium 9.3 Total Bilirubin 0.3 AST 16 ALT 28 Alkaline Phosphatase 67 Total Protein 6.6 Albumin 3.9 TSH 41.30 H 11/23/17 04:40 WBC 5.6 RBC 4.39 Hgb 14.4 D Hct 42.2 MCV 96 MCH 32.8 MCHC 34.1 RDW 14.0 Plt Count 262 Seg Neutrophils % 56.2 Lymphocytes % 31.2 Monocytes % 10.5 Eosinophils % 1.0 Basophils % 1.1 Absolute Neutrophils 3.2 Absolute Lymphocytes 1.8 Absolute Monocytes 0.6 Absolute Eosinophils 0.1 Absolute Basophils 0.1 Sodium Potassium Chloride Carbon Dioxide Anion Gap BUN Creatinine Est GFR ( Amer) Est GFR (Non-Af Amer) Glucose Calcium Total Bilirubin AST ALT Alkaline Phosphatase Total Protein Albumin TSH 11/22/17 11/22/17 11/22/17 15:45 15:45 21:20 Creatine Kinase 110 113 CK-MB (CK-2) 1.39 Troponin I 0.013 NT-Pro-B Natriuret Pep 11/22/17 11/23/17 11/23/17 21:20 03:26 03:26 Creatine Kinase 109 CK-MB (CK-2) 1.67 1.58 Troponin I 0.017 0.016 NT-Pro-B Natriuret Pep 3290 H Impressions: Chest X-Ray 11/22/17 11:19 IMPRESSION: NO ACUTE RADIOGRAPHIC FINDING IN THE CHEST. Chest/Abdomen CTA 11/22/17 13:58 IMPRESSION: 2.2 x 1.9 cm mass in the lower right hilum/right lower lobe worrisome for malignancy Minimal ground-glass opacity in the upper lobes bilaterally, question pneumonitis or very mild pulmonary edema Ectatic distal thoracic aorta with a rind of mural thrombus. This is similar compared to previous studies. Assessment & Plan - Diagnosis (1) Chest pain Qualifiers: Chest pain type: unspecified Qualified Code(s): R07.9 - Chest pain, unspecified Is this a current diagnosis for this admission?: Yes Plan: So far cardiac enzymes are negative still patient on multiple risk factor for coronary disease will continues to follow with the cardiology (2) Coronary artery disease Qualifiers: Coronary Disease-Associated Artery/Lesion type: unspecified vessel or lesion type Associated angina: without angina Is this a current diagnosis for this admission?: Yes Plan: Patient had a history of the stent placements and also history of the bypass surgery in 2011 patients in my record last seen in 2016 at the [facility] and had a stress test and echo was done was all stable with the patient's EF was 25-30 persons (3) Thoracic aneurysm without mention of rupture Qualifiers: Presence of rupture: without rupture Qualified Code(s): I71.2 - Thoracic aortic aneurysm, without rupture Is this a current diagnosis for this admission?: Yes Plan: Optimize the blood pressure was controlled (4) Lung mass Is this a current diagnosis for this admission?: Yes Plan: Follow with the pulmonary and oncology (5) Chronic obstructive pulmonary disease Qualifiers: COPD type: unspecified COPD Qualified Code(s): J44.9 - Chronic obstructive pulmonary disease, unspecified Is this a current diagnosis for this admission?: Yes Plan: Continues to nebulizer treatments (6) Peripheral vascular disease Is this a current diagnosis for this admission?: Yes Plan: Patient's currently followed at [facility] (7) Carotid artery disease Qualifiers: Laterality: unspecified laterality Qualified Code(s): I77.9 - Disorder of arteries and arterioles, unspecified Is this a current diagnosis for this admission?: Yes Plan: Status post surgery currently follow vascular surgery in [place] (8) Cerebrovascular disease Is this a current diagnosis for this admission?: Yes Plan: Continues to aspirin Plavix (9) Renal artery stenosis Is this a current diagnosis for this admission?: Yes Plan: Status post stent placement at [facility] last year (10) Hypertension Qualifiers: Hypertension type: essential hypertension Qualified Code(s): I10 - Essential (primary) hypertension Is this a current diagnosis for this admission?: Yes Plan: Keep a blood pressure 110-120 range adjust the medications (11) Hyperlipidemia Qualifiers: Hyperlipidemia type: unspecified Qualified Code(s): E78.5 - Hyperlipidemia , unspecified Is this a current diagnosis for this admission?: Yes Plan: We will check the LDL (12) Congestive heart failure Qualifiers: Heart failure type: systolic Heart failure chronicity: chronic Qualified Code(s): I50.22 - Chronic systolic (congestive) heart failure Is this a current diagnosis for this admission?: Yes Plan: Patient's last echo in my record was 30% will consult the cardiology (13) Non compliance with medical treatment Is this a current diagnosis for this admission?: Yes - Time Time Spent with patient: 15-24 minutes Medications reviewed and adjusted accordingly: Yes Within: Other - Inpatient Certification Medical Necessity: Need Close Monitoring Due to Risk of Patient Decompensation, Need for IV Antibiotics Post Hospital Care: D/C [facility] Documentation - Plan Summary Plan Summary: Continues current medicationsContinues to have antibiotic presumed pneumonitis
[2017-11-23] MEDS: ATORVASTATIN CALCIUM 20 MG TABLET PO SCH (09:34)
[2017-11-23] MEDS: CARVEDILOL 6.25 MG TABLET PO SCH ×2 (09:34→21:49)
[2017-11-23] MEDS: LOSARTAN POTASSIUM 25 MG TABLET PO SCH (09:35)
[2017-11-23] MEDS: CEFEPIME 1 GM/D5W RTU 1 GM/50 ML RTUPB IV SCH ×2 (09:35→21:34)
--- NOTE | 2017-11-23 09:44 | EKG REPORT ---
SEVERITY:- ABNORMAL ECG - SINUS RHYTHM INFERIOR INFARCT, OLD NONSPECIFIC T ABNORMALITIES, ANT-LAT LEADS : Confirmed by: Dom Rodriguez 23-Nov-2017 09:44:03
[2017-11-23] MEDS ORDERED: CLOPIDOGREL BISULFATE 75 MG TABLET PO SCH (10:00)
[2017-11-23] MEDS ORDERED: ASPIRIN 81 MG TABLET, ENT COATED PO SCH (10:00)
[2017-11-23] MEDS ORDERED: METOPROLOL TARTRATE 25 MG TABLET PO SCH (10:00)
[2017-11-23] MEDS ORDERED: GLUCAGON,HUMAN RECOMB 1 MG INJ SUBCUT PRN (10:50)
[2017-11-23] MEDS ORDERED: DEXTROSE 40% GEL 15 GM TUBE PO PRN ×2 (10:50)
[2017-11-23] MEDS ORDERED: DEXTROSE 50%-WATER 25 GM/50 ML DISP.SYRIN IV PRN ×2 (10:50)
[2017-11-23] MEDS: AMLODIPINE BESYLATE 5 MG TABLET PO SCH (17:03)
--- NOTE | 2017-11-23 19:50 | XCELERA REPORT ---
[address] [address] Transthoracic Echocardiogram Report Name: MIGUEL A WINSTON Age: 72 yrs Gender: Female : 1945 Patient Status: Inpatient Patient Location: [address] [place] [address] Study Date: 11/23/2017 10:44 AM Height: 65 in Weight: 143 lb BSA: 1.7 m2 Procedure: A complete two-dimensional transthoracic echocardiogram was performed (2D, M-mode, spectral and color flow Doppler). The study was technically difficult with many images being suboptimal in quality. Reason For Study: chest pain/chf/cad Ordering Physician: DANE SMITH Performed By: Yuliet Goldstein Interpretation Summary The study was technically difficult with many images being suboptimal in quality. The Ejection Fraction estimate is 35-40% Left ventricular systolic function is moderately reduced. Doppler measurements suggest pseudonormalized left ventricular relaxation, which is associated with grade II/IV or mild to moderate diastolic dysfunction There is mild to moderate concentric left ventricular hypertrophy. The left ventricle is borderline dilated. There is moderate global hypokinesis of the left ventricle. Regional wall motion abnormalities cannot be excluded due to limited visualization. The right ventricular systolic function is normal. The right atrium is normal in size Borderline left atrial enlargement. There is a trace to mild amount of mitral regurgitation There is no mitral valve stenosis. No aortic regurgitation is present. There is no aortic valve stenosis There is no tricuspid stenosis. No tricuspid regurgitation. The aortic root is not well visualized but is probably normal size. The inferior vena cava was not visualized Minimal pericardial effusion. MMode/2D Measurements & Calculations RVDd: 3.2 cm LVIDd: 5.2 cm FS: 14.7 % EPSS: 1.2 cm IVSd: 1.1 cm LVIDs: 4.5 cm EDV(Teich): 130.4 ml LVPWd: 0.79 cm ESV(Teich): 90.1 ml EF(Teich): 30.9 % Ao root diam: 2.0 cm Ao root area: 3.1 cm2 LA dimension: 3.5 cm Doppler Measurements & Calculations MV E max sarah: MV P1/2t max sarah: Ao V2 max: LV V1 max P.4 cm/sec 47.4 cm/sec 114.6 cm/sec 2.4 mmHg MV A max sarah: MV P1/2t: 51.7 msec Ao max PG: LV V1 max: 110.6 cm/sec MVA(P1/2t): 4.3 cm2 5.2 mmHg 78.0 cm/sec MV E/A: 0.40 MV dec slope: 268.7 cm/sec2 MV dec time: 0.16 sec PA V2 max: 104.6 cm/sec PA max P.4 mmHg Left Ventricle The left ventricle is borderline dilated. There is mild to moderate concentric left ventricular hypertrophy. Left ventricular systolic function is moderately reduced. The Ejection Fraction estimate is 35-40%. Doppler measurements suggest pseudonormalized left ventricular relaxation, which is associated with grade II/IV or mild to moderate diastolic dysfunction. There is moderate global hypokinesis of the left ventricle. Regional wall motion abnormalities cannot be excluded due to limited visualization. Right Ventricle The right ventricle is grossly normal size. There is normal right ventricular wall thickness. The right ventricular systolic function is normal. Atria The right atrium is normal in size. Borderline left atrial enlargement. Interarterial septum not well visualized and not well dopplered. Cannot comment on ASD/PFO presence. Mitral Valve The mitral valve is grossly normal. There is no mitral valve stenosis. There is a trace to mild amount of mitral regurgitation. Aortic Valve The aortic valve is grossly normal. There is no aortic valve stenosis. No aortic regurgitation is present. Tricuspid Valve The tricuspid valve is not well visualized, but is grossly normal. There is no tricuspid stenosis. No tricuspid regurgitation. Pulmonic Valve The pulmonic valve is not well visualized. Great Vessels The aortic root is not well visualized but is probably normal size. The inferior vena cava was not visualized. Effusions Minimal pericardial effusion. : DANE SMITH > Dom Rodriguez
--- NOTE | 2017-11-23 20:18 | PDOC CONSULTATION ---
Consultation Consult Date: 11/22/17 Attending physician:: DANE SMITH Consult reason:: Chest pain and shortness of breath History of Present Illness Admission Date/PCP: 11/22/17 14:31 DANE SMITH MD Patient complains of: Chest pain and shortness of breath History of Present Illness: MIGUEL A WINSTON is a 72 year old female with a significant history of the coronary artery disease status post stent placements and status post bypass surgery very noncompliance used to see a [facility] and also history of the significant carotid artery disease status post carotid endarterectomyAnd a history of peripheral vascular disease status post femoropopliteal bypassHistory of the COPD and a continued smoker despite off so many times discussed with the patient and the daughter about multiple comorbidity with continued smoking causing the more complications but patients pretty much do not want to quit the smokingHistory of the thoracic aneurysm and currently [facility] with the complaining of left mid back and chest pain and feel like when patient had a heart attacks in the past Initial workup including the EKG and cardiac enzymes 1 is negative and patient have a CT angiogram was done which is negative for any change in the thoracic aneurysm but patient have a new lung mass which is not that the CT of the chest in May 2017 Patient is currently denied any chest pain denied any shortness of the breath pt is very depressd and anxoius due to recent in family and not taking med as rx This history obtained by Dr. Smith was reviewed and confirmed. Patient describes she had coronary artery bypass graft surgery approximately 15 years ago at the hospital in [facility] by Dr. Crews. Patient has numerous vascular problems. Past Medical History Cardiac Medical History: Reports: Congestive Heart Failure, Coronary Artery Disease, Myocardial Infarction - x5, bypass x 3, Hyperlipidema, Hypertension, Peripheral Vascular Disease Pulmonary Medical History: Reports: Chronic Obstructive Pulmonary Disease (COPD) , Pneumonia Neurological Medical History: Reports: Ischemic CVA Endocrine Medical History: Reports: Diabetes Mellitus Type 2 GI Medical History: Reports: Gastroesophageal Reflux Disease Musculoskeltal Medical History: Reports: Arthritis Psychiatric Medical History: Reports: Depression Past Surgical History Past Surgical History: Reports: Coronary Artery Bypass Graft, Orthopedic Surgery - 4,5,6 disc removed, Vascular Surgery, Other - Carotid endarterectomy, peripheral stents and peripheral bypass surgery. Social History Information Source: Patient Smoking Status: Current Every Day Smoker Cigarettes Packs Per Day: 2 Number of Years Smokin Frequency of Alcohol Use: None Hx Recreational Drug Use: No Drugs: None Hx Prescription Drug Abuse: No - Advance Directive Resuscitation Status: Do Not Resuscitate Family History Family History: None, CAD, Hypertension Parental Family History Reviewed: Yes Children Family History Reviewed: Yes Sibling(s) Family History Reviewed.: Yes Medication/Allergy Home Medications: Aspirin [Adult Low Dose Aspirin EC] 81 mg PO DAILY 11/22/17 Carvedilol [Coreg 6.25 mg Tablet] 6.25 mg PO Q12 11/22/17 Clopidogrel Bisulfate [Plavix 75 mg Tablet] 75 mg PO DAILY 11/22/17 Levothyroxine Sodium [Synthroid] 112 mcg PO Q6AM 11/22/17 Rosuvastatin Calcium [Crestor 10 mg Tablet] 10 mg PO DAILY 11/22/17 Allergies/Adverse Reactions: No Known Allergies Allergy (Verified 11/22/17 17:39) Review of Systems Review of Systems: Please see history of present illness and past medical history as wall. Constitutional: No fever or chills reported. Head : No recent chronic headaches, recent head injury. Eyes: No recent eye pain, diplopia, redness, discharge, acute visual changes. Ears: No recent chronic ear pain, acute hearing loss, ear discharge. Oral cavity: No recent ulcerations, bleeding, oral cavity discomfort. Neck: No recent acute neck pain reported. Hematologic: No recent easy bruising or bleeding. No other obvious bleeding noted. Lymphatic: No recent lymphatic malignancy, chronic lymphadenopathy reported yet Cardiovascular system review: See history of present illness. Respiratory system review: No recent chronic cough, hemoptysis, blood clots in the lungs reported. Mild to moderate shortness of breath on exertion Gastrointestinal system review: Negative for any recent acute or chronic abdominal pain, hematemesis, melena, recent change in bowel habits. Genitourinary system review: No recent acute or chronic hematuria, flank pain, UTI etc. reported. Skin system review: Negative for any recent abnormal bruising, no rash, no pruritus reported. Neurologic: No prior history of strokes, seizure disorder. Possible mini strokes history reported Psychologic: No history of major psychosis or major depression reported. Minor depression reported by the patient Musculoskeletal: Minor aches and pains reported. No acute joint swelling reported. Endocrine: No recent polyuria, polydipsia, recent heat or cold intolerance. Physical Exam Vital Signs: Temp Pulse Resp BP Pulse Ox 97.6 F 97 14 169/101 H 100 11/22/17 19:56 11/22/17 19:56 11/22/17 19:56 11/22/17 20:02 11/22/17 19:56 Results Laboratory Results: 11/22/17 15:45 TSH 41.30 H 11/22/17 11/22/17 15:45 15:45 Creatine Kinase 110 CK-MB (CK-2) 1.39 Troponin I 0.013 EKG Comments: Sinus rhythm, inferior infarct old, nonspecific T-wave inversion. Impressions: Chest X-Ray 11/22/17 11:19 IMPRESSION: NO ACUTE RADIOGRAPHIC FINDING IN THE CHEST. Chest/Abdomen CTA 11/22/17 13:58 IMPRESSION: 2.2 x 1.9 cm mass in the lower right hilum/right lower lobe worrisome for malignancy Minimal ground-glass opacity in the upper lobes bilaterally, question pneumonitis or very mild pulmonary edema Ectatic distal thoracic aorta with a rind of mural thrombus. This is similar compared to previous studies. Assessment & Plan - Diagnosis (1) Chest pain Qualifiers: Chest pain type: unspecified Qualified Code(s): R07.9 - Chest pain, unspecified Is this a current diagnosis for this admission?: Yes (2) Carotid artery disease Qualifiers: Laterality: unspecified laterality Qualified Code(s): I77.9 - Disorder of arteries and arterioles, unspecified Is this a current diagnosis for this admission?: Yes (3) Cerebrovascular disease Is this a current diagnosis for this admission?: Yes (4) Chronic obstructive pulmonary disease Qualifiers: COPD type: unspecified COPD Qualified Code(s): J44.9 - Chronic obstructive pulmonary disease, unspecified Is this a current diagnosis for this admission?: Yes (5) Coronary artery disease Qualifiers: Coronary Disease-Associated Artery/Lesion type: unspecified vessel or lesion type Associated angina: without angina Is this a current diagnosis for this admission?: Yes (6) Hyperlipidemia Qualifiers: Hyperlipidemia type: unspecified Qualified Code(s): E78.5 - Hyperlipidemia , unspecified Is this a current diagnosis for this admission?: Yes (7) Hypertension Qualifiers: Hypertension type: essential hypertension Qualified Code(s): I10 - Essential (primary) hypertension Is this a current diagnosis for this admission?: Yes (8) Peripheral vascular disease Is this a current diagnosis for this admission?: Yes (9) Tobacco abuse Is this a current diagnosis for this admission?: Yes - Notes Notes: Chest pain: So far cardiac enzymes are negative EKG showing some nonspecific T- wave changes. At this point agree with continuing to obtain EKGs and troponin I. Will discuss ischemia evaluation with the patient. Carotid artery disease: Continue aggressive risk factor modification and medical management. COPD: This is a significant problem. Patient has been advised to quit smoking but she is reluctant to do it. CAD: Will take this opportunity to optimize medical management. Patient's overall prognosis is guarded. Dyslipidemia: Continue with high potency statin therapy. Hypertension: Blood pressure goal is 140/90 or less. PVD: Patient has been advised to quit smoking. Patient would benefit from dual antiplatelet therapy if there are no contraindications. History of lung mass: Patient to be evaluated by oncologist. Tobacco abuse: Patient advised to quit smoking but she is reluctant to do so and would not give any commitment to quit. - Time Time Spent: 30 to 50 Minutes - CODE STATUS was discussed, patient remains DNR. Multiple medical problems were addressed. More than 50% of the time spent coordinating care, discussing management plans with involved caregivers. Management plans discussed with involved personnels. Medical decision making was of moderate to high complexity, patient's has multiple comorbidities. Medications reviewed and adjusted accordingly: Yes
[2017-11-23] MEDS: RANOLAZINE 500 MG TAB.SR.12H PO SCH (21:34)
--- NOTE | 2017-11-24 02:41 | Physician Advisory Note ---
Physician Advisor ProgressNote .: Pursuant to the plan for [facility], I have reviewed the medical record for this patient. Physician Advisor Statement: Please consider documenting, fi you agree: 1. "CP, suspect due to " [cardiac ischemia? lung mass? acute bronchitis? ...] 2. "lung mass, suspect this is " Thanks! CK
[2017-11-24] MEDS: IPRATROPIUM/ALBUTEROL 0.5-2.5 MG/3 ML AMPUL NEB SCH ×3 (04:27→12:12)
[2017-11-24] MEDS: LANSOPRAZOLE 15 MG TAB.RAP.DR PO SCH (05:27)
[2017-11-24] MEDS: LEVOTHYROXINE SODIUM 0.112 MG TABLET PO SCH (05:27)
[2017-11-24] MEDS: HEPARIN SOD (PORCINE) 5,000 UNIT/ML 1 ML SYRINGE SUBCUT SCH ×2 (05:28→14:56)
[2017-11-24 05:40] LABS: ABSOLUTE BASOPHILS # (AUTO) 0.1 10^3/uL (0.0-0.2); ABSOLUTE EOSINOPHILS # (AUTO) 0.1 10^3/uL (0.0-0.6); ABSOLUTE LYMPHOCYTES (AUTO) 1.5 10^3/uL (0.5-4.7); ABSOLUTE MONOCYTES (AUTO) 0.5 10^3/uL (0.1-1.4); ABSOLUTE NEUT (AUTO) 3.8 10^3/uL (1.7-8.2); BASOPHILS % (AUTO) 1.3 % (0-2); EOSINOPHILS % (AUTO) 1.7 % (0-6); HEMATOCRIT 42.4 % (36.0-47.0); HEMOGLOBIN 14.5 g/dL (12.0-15.5); MEAN CORPUSCULAR HEMOGLOBIN 32.6 pg (27.0-33.4); MEAN CORPUSCULAR HGB CONC 34.3 g/dL (32.0-36.0); MEAN CORPUSCULAR VOLUME 95 fl (80-97); MONOCYTES % (AUTO) 8.7 % (3-13); PLATELET COUNT 244 10^3/uL (150-450); RED BLOOD COUNT 4.45 10^6/uL (3.72-5.28); RED CELL DISTRIBUTION WIDTH 14.4 % (11.5-14.0); SEGMENTED NEUTROPHILS % (AUTO) 63.3 % (42-78); TOTAL CELLS COUNTED % (AUTO) 100 %; WHITE BLOOD COUNT 6.1 10^3/uL (4.0-10.5)
--- NOTE | 2017-11-24 08:22 | PDOC PROGRESS REPORT ---
Subjective Progress Note for:: 11/24/17 Subjective:: No acute events overnight, CP now completely gone, stress pending this am. Pt is very upset about the possibility that a positive stress would need eval probably at another institution and may prevent her discharge home. I explained the need and rationale at length, spent >35 min indiscusion today Reason For Visit: CHEST PAIN/LUNG MASS Physical Exam Vital Signs: Temp Pulse Resp BP Pulse Ox 98.0 F 82 16 104/59 L 99 11/24/17 04:21 11/24/17 04:21 11/24/17 04:21 11/24/17 04:21 11/24/17 04:21 Intake & Output 11/23/17 11/24/17 11/25/17 06:59 06:59 06:59 Intake Total 560 1266 Output Total 400 Balance 560 866 Weight 64.1 kg 66.1 kg General appearance: PRESENT: no acute distress, well-developed, well-nourished Head exam: PRESENT: atraumatic, normocephalic Eye exam: PRESENT: conjunctiva pink, EOMI, PERRLA. ABSENT: scleral icterus Ear exam: PRESENT: normal external ear exam Mouth exam: PRESENT: moist, tongue midline Neck exam: ABSENT: carotid bruit, JVD, lymphadenopathy, thyromegaly Respiratory exam: PRESENT: clear to auscultation nasreen. ABSENT: rales, rhonchi, wheezes Cardiovascular exam: PRESENT: RRR. ABSENT: diastolic murmur, rubs, systolic murmur Pulses: PRESENT: normal dorsalis pedis pul Vascular exam: PRESENT: normal capillary refill GI/Abdominal exam: PRESENT: normal bowel sounds, soft. ABSENT: distended, guarding, mass, organolmegaly, rebound, tenderness Rectal exam: PRESENT: deferred Extremities exam: PRESENT: full ROM. ABSENT: calf tenderness, clubbing, pedal edema Neurological exam: PRESENT: alert, awake, oriented to person, oriented to place , oriented to time, oriented to situation, CN II-XII grossly intact. ABSENT: motor sensory deficit Psychiatric exam: PRESENT: appropriate affect, normal mood. ABSENT: homicidal ideation, suicidal ideation Skin exam: PRESENT: dry, intact, warm. ABSENT: cyanosis, rash Results Laboratory Results: 11/24/17 05:31 11/23/17 03:26 11/24/17 05:31 WBC 6.1 RBC 4.45 Hgb 14.5 Hct 42.4 MCV 95 MCH 32.6 MCHC 34.3 RDW 14.4 H Plt Count 244 Seg Neutrophils % 63.3 Lymphocytes % 25.0 Monocytes % 8.7 Eosinophils % 1.7 Basophils % 1.3 Absolute Neutrophils 3.8 Absolute Lymphocytes 1.5 Absolute Monocytes 0.5 Absolute Eosinophils 0.1 Absolute Basophils 0.1 11/22/17 11/22/17 11/22/17 15:45 15:45 21:20 Creatine Kinase 110 113 CK-MB (CK-2) 1.39 Troponin I 0.013 NT-Pro-B Natriuret Pep 11/22/17 11/23/17 11/23/17 21:20 03:26 03:26 Creatine Kinase 109 CK-MB (CK-2) 1.67 1.58 Troponin I 0.017 0.016 NT-Pro-B Natriuret Pep 3290 H Impressions: Chest X-Ray 11/22/17 11:19 IMPRESSION: NO ACUTE RADIOGRAPHIC FINDING IN THE CHEST. Chest/Abdomen CTA 11/22/17 13:58 IMPRESSION: 2.2 x 1.9 cm mass in the lower right hilum/right lower lobe worrisome for malignancy Minimal ground-glass opacity in the upper lobes bilaterally, question pneumonitis or very mild pulmonary edema Ectatic distal thoracic aorta with a rind of mural thrombus. This is similar compared to previous studies. Assessment & Plan - Diagnosis (1) Lung mass Is this a current diagnosis for this admission?: Yes Plan: Saw that prev echo w/ EF 20-30%, awaiting improvement of CHF/COPD exacerbation to proceed w/ further w/u. Will follow peripherally until bronch is amenable. - Time Time Spent with patient: 35 or more minutes
--- NOTE | 2017-11-24 08:57 | PDOC PROGRESS REPORT ---
Subjective Progress Note for:: 11/24/17 Subjective:: Patient is currently doing much better Is denied any chest pain denied any shortness of the breath Patient scheduled for the stress test today Patients do not want to wait for the bronchoscopy until Tuesday to stay in the hospital and desperately wants to go home according to the patient she is doing well and see having no desire to stay in the hospital anymore and the stress test negative she willing to go home she is feeling much betterAnd see prefer to follow outpatient Reason For Visit: CHEST PAIN/LUNG MASS Physical Exam Vital Signs: Temp Pulse Resp BP Pulse Ox 98.0 F 82 16 104/59 L 99 11/24/17 04:21 11/24/17 04:21 11/24/17 04:21 11/24/17 04:21 11/24/17 04:21 Intake & Output 11/23/17 11/24/17 11/25/17 06:59 06:59 06:59 Intake Total 560 1266 Output Total 400 Balance 560 866 Weight 64.1 kg 66.1 kg General appearance: PRESENT: no acute distress, well-developed, well-nourished Head exam: PRESENT: atraumatic, normocephalic Eye exam: PRESENT: conjunctiva pink, EOMI, PERRLA. ABSENT: scleral icterus Ear exam: PRESENT: normal external ear exam Mouth exam: PRESENT: moist, tongue midline Neck exam: PRESENT: full ROM. ABSENT: carotid bruit, JVD, lymphadenopathy, thyromegaly Respiratory exam: PRESENT: clear to auscultation nasreen Cardiovascular exam: PRESENT: RRR. ABSENT: diastolic murmur, rubs, systolic murmur Pulses: PRESENT: normal dorsalis pedis pul, +2 pedal pulses bilateral Vascular exam: PRESENT: normal capillary refill GI/Abdominal exam: PRESENT: normal bowel sounds, soft. ABSENT: distended, guarding, mass, organolmegaly, rebound, tenderness Rectal exam: PRESENT: deferred Extremities exam: ABSENT: pedal edema Musculoskeletal exam: PRESENT: ambulatory Neurological exam: PRESENT: alert, awake, oriented to person, oriented to place , oriented to time, oriented to situation, CN II-XII grossly intact. ABSENT: motor sensory deficit Psychiatric exam: PRESENT: appropriate affect, normal mood. ABSENT: homicidal ideation, suicidal ideation Skin exam: PRESENT: dry, intact, warm. ABSENT: cyanosis, rash Results Laboratory Results: 11/24/17 05:31 11/23/17 03:26 11/24/17 05:31 WBC 6.1 RBC 4.45 Hgb 14.5 Hct 42.4 MCV 95 MCH 32.6 MCHC 34.3 RDW 14.4 H Plt Count 244 Seg Neutrophils % 63.3 Lymphocytes % 25.0 Monocytes % 8.7 Eosinophils % 1.7 Basophils % 1.3 Absolute Neutrophils 3.8 Absolute Lymphocytes 1.5 Absolute Monocytes 0.5 Absolute Eosinophils 0.1 Absolute Basophils 0.1 11/22/17 11/22/17 11/22/17 15:45 15:45 21:20 Creatine Kinase 110 113 CK-MB (CK-2) 1.39 Troponin I 0.013 NT-Pro-B Natriuret Pep 11/22/17 11/23/17 11/23/17 21:20 03:26 03:26 Creatine Kinase 109 CK-MB (CK-2) 1.67 1.58 Troponin I 0.017 0.016 NT-Pro-B Natriuret Pep 3290 H Impressions: Chest X-Ray 11/22/17 11:19 IMPRESSION: NO ACUTE RADIOGRAPHIC FINDING IN THE CHEST. Chest/Abdomen CTA 11/22/17 13:58 IMPRESSION: 2.2 x 1.9 cm mass in the lower right hilum/right lower lobe worrisome for malignancy Minimal ground-glass opacity in the upper lobes bilaterally, question pneumonitis or very mild pulmonary edema Ectatic distal thoracic aorta with a rind of mural thrombus. This is similar compared to previous studies. Assessment & Plan - Diagnosis (1) Chest pain Qualifiers: Chest pain type: unspecified Qualified Code(s): R07.9 - Chest pain, unspecified Is this a current diagnosis for this admission?: Yes Plan: Currently all resolved waiting for the stress test (2) Coronary artery disease Qualifiers: Coronary Disease-Associated Artery/Lesion type: unspecified vessel or lesion type Associated angina: without angina Is this a current diagnosis for this admission?: Yes Plan: Patient had a history of the stent placements and also history of the bypass surgery in 2011 patients in my record last seen in 2016 at the [facility] and had a stress test and echo was done was all stable with the patient's EF was 25-30 persons (3) Thoracic aneurysm without mention of rupture Qualifiers: Presence of rupture: without rupture Qualified Code(s): I71.2 - Thoracic aortic aneurysm, without rupture Is this a current diagnosis for this admission?: Yes Plan: Optimize the blood pressure was controlled (4) Lung mass Is this a current diagnosis for this admission?: Yes Plan: Follow with the pulmonary and oncology (5) Chronic obstructive pulmonary disease Qualifiers: COPD type: unspecified COPD Qualified Code(s): J44.9 - Chronic obstructive pulmonary disease, unspecified Is this a current diagnosis for this admission?: Yes Plan: Continues to nebulizer treatments (6) Peripheral vascular disease Is this a current diagnosis for this admission?: Yes Plan: Patient's currently followed at [facility] (7) Carotid artery disease Qualifiers: Laterality: unspecified laterality Qualified Code(s): I77.9 - Disorder of arteries and arterioles, unspecified Is this a current diagnosis for this admission?: Yes Plan: Status post surgery currently follow vascular surgery in [place] (8) Cerebrovascular disease Is this a current diagnosis for this admission?: Yes Plan: Continues to aspirin Plavix (9) Renal artery stenosis Is this a current diagnosis for this admission?: Yes Plan: Status post stent placement at [facility] last year (10) Hypertension Qualifiers: Hypertension type: essential hypertension Qualified Code(s): I10 - Essential (primary) hypertension Is this a current diagnosis for this admission?: Yes Plan: Keep a blood pressure 110-120 range adjust the medications (11) Hyperlipidemia Qualifiers: Hyperlipidemia type: unspecified Qualified Code(s): E78.5 - Hyperlipidemia , unspecified Is this a current diagnosis for this admission?: Yes Plan: We will check the LDL (12) Congestive heart failure Qualifiers: Heart failure type: systolic Heart failure chronicity: chronic Qualified Code(s): I50.22 - Chronic systolic (congestive) heart failure Is this a current diagnosis for this admission?: Yes Plan: Patient's last echo in my record was 30% will consult the cardiology (13) Non compliance with medical treatment Is this a current diagnosis for this admission?: Yes Plan: pt is very non complience and not taking med since last 1 wk and also cont smoke and not f/u consulted as need - Time Time Spent with patient: 15-24 minutes Medications reviewed and adjusted accordingly: Yes Anticipated discharge: Home Within: within 24 hours - Inpatient Certification Medical Necessity: Need Close Monitoring Due to Risk of Patient Decompensation 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
[2017-11-24] MEDS ORDERED: LEVALBUTEROL HCL NEB 1.25 MG/3 ML AMPUL NEB ONE (09:00)
[2017-11-24] MEDS: LOSARTAN POTASSIUM 25 MG TABLET PO SCH (10:54)
[2017-11-24] MEDS: ATORVASTATIN CALCIUM 20 MG TABLET PO SCH (10:54)
[2017-11-24] MEDS: RANOLAZINE 500 MG TAB.SR.12H PO SCH (10:55)
[2017-11-24] MEDS: CARVEDILOL 6.25 MG TABLET PO SCH (10:55)
[2017-11-24] MEDS: CEFEPIME 1 GM/D5W RTU 1 GM/50 ML RTUPB IV SCH (10:56)
--- NOTE | 2017-11-24 11:44 | PDOC PROGRESS REPORT ---
Subjective Progress Note for:: 11/23/17 Subjective:: Patient seems to be doing better. Still has some wheezing and shortness of breath. Patient scheduled for bronchoscopy but needs cardiac clearance. This is not unreasonable in view of history of chest pain on admission. Pt is denying any chest arm or neck discomfort. Patient denying any PND, orthopnea. Patient denied any sustained palpitations, dizziness, syncope, near syncope. Patient denying any fever chills. Patient denying any other significant discomfort. Patient is maintaining sinus rhythm. Review of systems: Rest review of systems negative. Medications: Medications have been reviewed. Reason For Visit: CHEST PAIN/LUNG MASS Physical Exam Vital Signs: Temp Pulse Resp BP Pulse Ox 98.0 F 82 16 104/59 L 99 11/24/17 04:21 11/24/17 04:21 11/24/17 04:21 11/24/17 04:21 11/24/17 04:21 Intake & Output 11/23/17 11/24/17 11/25/17 06:59 06:59 06:59 Intake Total 560 1266 Output Total 400 Balance 560 866 Weight 64.1 kg 66.1 kg Exam: GENERAL: well-nourished and in no acute distress. Alert and oriented x3 HEAD: Atraumatic, normocephalic. EYES: Pupils equal round and reactive to light, extraocular movements intact, sclera anicteric, conjunctiva are normal. ENT: TMs normal, nares patent, oropharynx clear without exudates. Moist mucous membranes. No oral ulcerations or bleeding gums noted NECK: supple without lymphadenopathy. Trachea is central. No cervical or axillary lymphadenopathy noted. Carotids are 2+, JVD WNL LUNGS: Respiration seems nonlabored, no significant accessory muscle action noted. Few bilateral scattered wheezes rales or rhonchi noted. No significant dullness noted on percussion. CHEST: Palpation of the chest wall shows no significant chest wall tenderness. No other significant abnormalities noted. HEART: [place] [employer], No PSH, 1/6 BARBER aortic area, 1/6 hernandez systolic murmur mitral area, no rubs, no gallops. ABDOMEN: Soft, no significant tenderness appreciated, normoactive bowel sounds. No guarding, no rebound. No rigidity noted . No masses appreciated. EXTREMITIES: Pedal pulses are 1-2 seems diminished, no calf tenderness noted. No clubbing or cyanosis. negative pedal edema noted NEUROLOGICAL: Focused neurological exam showed no significant neurologic deficit. Normal speech, no focal weakness appreciated. PSYCH: Normal mood, normal affect. Judgment and insight within normal limits. SKIN: No significant ecchymosis, skin is noted to be warm. MUSCULOSKELETAL EXAM: No significant acute joint swelling noted. Results Laboratory Results: 11/24/17 05:31 11/23/17 03:26 11/24/17 05:31 WBC 6.1 RBC 4.45 Hgb 14.5 Hct 42.4 MCV 95 MCH 32.6 MCHC 34.3 RDW 14.4 H Plt Count 244 Seg Neutrophils % 63.3 Lymphocytes % 25.0 Monocytes % 8.7 Eosinophils % 1.7 Basophils % 1.3 Absolute Neutrophils 3.8 Absolute Lymphocytes 1.5 Absolute Monocytes 0.5 Absolute Eosinophils 0.1 Absolute Basophils 0.1 11/22/17 11/22/17 11/22/17 15:45 15:45 21:20 Creatine Kinase 110 113 CK-MB (CK-2) 1.39 Troponin I 0.013 NT-Pro-B Natriuret Pep 11/22/17 11/23/17 11/23/17 21:20 03:26 03:26 Creatine Kinase 109 CK-MB (CK-2) 1.67 1.58 Troponin I 0.017 0.016 NT-Pro-B Natriuret Pep 3290 H EKG Comments: Sinus rhythm, abnormal Q waves noted inferior leads consistent with prior inferior myocardial infarction. Minor nonspecific ST-T wave changes are noted. Telemetry strips shows sinus rhythm without any sustained tachycardia or bradycardia. Impressions: Chest X-Ray 11/22/17 11:19 IMPRESSION: NO ACUTE RADIOGRAPHIC FINDING IN THE CHEST. Chest/Abdomen CTA 11/22/17 13:58 IMPRESSION: 2.2 x 1.9 cm mass in the lower right hilum/right lower lobe worrisome for malignancy Minimal ground-glass opacity in the upper lobes bilaterally, question pneumonitis or very mild pulmonary edema Ectatic distal thoracic aorta with a rind of mural thrombus. This is similar compared to previous studies. Assessment & Plan - Diagnosis (1) Chest pain Qualifiers: Chest pain type: unspecified Qualified Code(s): R07.9 - Chest pain, unspecified Is this a current diagnosis for this admission?: Yes (2) Carotid artery disease Qualifiers: Laterality: unspecified laterality Qualified Code(s): I77.9 - Disorder of arteries and arterioles, unspecified Is this a current diagnosis for this admission?: Yes (3) Cerebrovascular disease Is this a current diagnosis for this admission?: Yes (4) Chronic obstructive pulmonary disease Qualifiers: COPD type: unspecified COPD Qualified Code(s): J44.9 - Chronic obstructive pulmonary disease, unspecified Is this a current diagnosis for this admission?: Yes (5) Coronary artery disease Qualifiers: Coronary Disease-Associated Artery/Lesion type: unspecified vessel or lesion type Associated angina: without angina Is this a current diagnosis for this admission?: Yes (6) Hyperlipidemia Qualifiers: Hyperlipidemia type: unspecified Qualified Code(s): E78.5 - Hyperlipidemia , unspecified Is this a current diagnosis for this admission?: Yes (7) Hypertension Qualifiers: Hypertension type: essential hypertension Qualified Code(s): I10 - Essential (primary) hypertension Is this a current diagnosis for this admission?: Yes (8) Peripheral vascular disease Is this a current diagnosis for this admission?: Yes (9) Tobacco abuse Is this a current diagnosis for this admission?: Yes - Notes Notes: Chest pain: So far cardiac enzymes are negative EKG showing some nonspecific T- wave changes. At this point cardiac enzymes and EKGs are relatively unremarkable except for showing evidence of prior myocardial infarction. Discussed scheduling stress test with the patient. She is agreeable. Patient questions were answered. A 2D echocardiogram obtained was reviewed. Patient questions were answered. Patient informed that she has depressed LVEF. Carotid artery disease: Continue aggressive risk factor modification and medical management. COPD: This is a significant problem. Patient has been advised to quit smoking but she is reluctant to do it. CAD: Will take this opportunity to optimize medical management. Patient's overall prognosis is guarded. Patient is status post CABG many years ago therefore could have progression of both graft and [place] vessel disease. Dyslipidemia: Continue with high potency statin therapy. Hypertension: Blood pressure goal is 140/90 or less. PVD: Patient has been advised to quit smoking. Patient would benefit from dual antiplatelet therapy if there are no contraindications. History of lung mass: Patient to be evaluated by oncologist. Tobacco abuse: Patient advised to quit smoking but very reluctant to give a commitment. Will try optimize medical management. Limiting factors or complaints and other comorbid diagnosis. - Time Time with patient: Greater than 35 minutes - CODE STATUS : was discussed, patient remains DO NOT RESUSCITATE. Surrogate decision-maker unchanged. Multiple medical problems were addressed. More than 50% of the time spent coordinating care, discussing management plans with involved caregivers. Management plans discussed with involved personnels. Medical decision making was of moderate to high complexity, patient's has multiple comorbidities. Medications reviewed and adjusted accordingly: Yes
--- NOTE | 2017-11-24 11:51 | PDOC PROGRESS REPORT ---
Subjective Progress Note for:: 11/24/17 Subjective:: Patient today underwent nuclear stress test without any complications. Earlier in the day nuclear stress test risk benefits were discussed. 2D echo results were also discussed. Patient seems to be doing better. Still has some wheezing and shortness of breath. Patient scheduled for bronchoscopy but needs cardiac clearance. This is not unreasonable in view of history of chest pain on admission. Pt is denying any chest arm or neck discomfort. Patient denying any PND, orthopnea. Patient denied any sustained palpitations, dizziness, syncope, near syncope. Patient denying any fever chills. Patient denying any other significant discomfort. Patient is maintaining sinus rhythm. Review of systems: Rest review of systems negative. Medications: Medications have been reviewed. Reason For Visit: CHEST PAIN/LUNG MASS Physical Exam Vital Signs: Temp Pulse Resp BP Pulse Ox 98.0 F 79 16 104/59 L 99 11/24/17 04:21 11/24/17 07:00 11/24/17 04:21 11/24/17 04:21 11/24/17 04:21 Intake & Output 11/23/17 11/24/17 11/25/17 06:59 06:59 06:59 Intake Total 560 1266 Output Total 400 Balance 560 866 Weight 64.1 kg 66.1 kg Exam: GENERAL: Thin built but in no acute distress. Alert and oriented x3 HEAD: Atraumatic, normocephalic. EYES: Pupils equal round and reactive to light, extraocular movements intact, sclera anicteric, conjunctiva are normal. ENT: TMs normal, nares patent, oropharynx clear without exudates. Moist mucous membranes. No oral ulcerations or bleeding gums noted NECK: supple without lymphadenopathy. Trachea is central. No cervical or axillary lymphadenopathy noted. Carotids are 2+, JVD WNL LUNGS: Respiration seems nonlabored, no significant accessory muscle action noted. Few bilateral scattered wheezes rales or rhonchi noted. No significant dullness noted on percussion. CHEST: Palpation of the chest wall shows no significant chest wall tenderness. HEART: [place] [employer], No PSH, 1/6 BARBER aortic area, 1/6 hernandez systolic murmur mitral area, no rubs, no gallops. ABDOMEN: Soft, no significant tenderness appreciated, normoactive bowel sounds. No guarding, no rebound. No rigidity noted . No masses appreciated. EXTREMITIES: Pedal pulses are 1-2+, no calf tenderness noted. No clubbing or cyanosis. negative pedal edema noted NEUROLOGICAL: Focused neurological exam showed no significant neurologic deficit. Normal speech, no focal weakness appreciated. PSYCH: Normal mood, normal affect. Judgment and insight within normal limits. SKIN: No significant ecchymosis, skin is noted to be warm. MUSCULOSKELETAL EXAM: No significant acute joint swelling noted. Results Laboratory Results: 11/24/17 05:31 11/23/17 03:26 11/24/17 05:31 WBC 6.1 RBC 4.45 Hgb 14.5 Hct 42.4 MCV 95 MCH 32.6 MCHC 34.3 RDW 14.4 H Plt Count 244 Seg Neutrophils % 63.3 Lymphocytes % 25.0 Monocytes % 8.7 Eosinophils % 1.7 Basophils % 1.3 Absolute Neutrophils 3.8 Absolute Lymphocytes 1.5 Absolute Monocytes 0.5 Absolute Eosinophils 0.1 Absolute Basophils 0.1 11/22/17 11/22/17 11/22/17 15:45 15:45 21:20 Creatine Kinase 110 113 CK-MB (CK-2) 1.39 Troponin I 0.013 NT-Pro-B Natriuret Pep 11/22/17 11/23/17 11/23/17 21:20 03:26 03:26 Creatine Kinase 109 CK-MB (CK-2) 1.67 1.58 Troponin I 0.017 0.016 NT-Pro-B Natriuret Pep 3290 H EKG Comments: Shows sinus rhythm without any sustained tachycardia or bradycardia. Impressions: Chest X-Ray 11/22/17 11:19 IMPRESSION: NO ACUTE RADIOGRAPHIC FINDING IN THE CHEST. Chest/Abdomen CTA 11/22/17 13:58 IMPRESSION: 2.2 x 1.9 cm mass in the lower right hilum/right lower lobe worrisome for malignancy Minimal ground-glass opacity in the upper lobes bilaterally, question pneumonitis or very mild pulmonary edema Ectatic distal thoracic aorta with a rind of mural thrombus. This is similar compared to previous studies. Assessment & Plan - Diagnosis (1) Chest pain Qualifiers: Chest pain type: unspecified Qualified Code(s): R07.9 - Chest pain, unspecified Is this a current diagnosis for this admission?: Yes (2) Carotid artery disease Qualifiers: Laterality: unspecified laterality Qualified Code(s): I77.9 - Disorder of arteries and arterioles, unspecified Is this a current diagnosis for this admission?: Yes (3) Cerebrovascular disease Is this a current diagnosis for this admission?: Yes (4) Chronic obstructive pulmonary disease Qualifiers: COPD type: unspecified COPD Qualified Code(s): J44.9 - Chronic obstructive pulmonary disease, unspecified Is this a current diagnosis for this admission?: Yes (5) Coronary artery disease Qualifiers: Coronary Disease-Associated Artery/Lesion type: unspecified vessel or lesion type Associated angina: without angina Is this a current diagnosis for this admission?: Yes (6) Hyperlipidemia Qualifiers: Hyperlipidemia type: unspecified Qualified Code(s): E78.5 - Hyperlipidemia , unspecified Is this a current diagnosis for this admission?: Yes (7) Hypertension Qualifiers: Hypertension type: essential hypertension Qualified Code(s): I10 - Essential (primary) hypertension Is this a current diagnosis for this admission?: Yes (8) Peripheral vascular disease Is this a current diagnosis for this admission?: Yes (9) Tobacco abuse Is this a current diagnosis for this admission?: Yes - Notes Notes: Chest pain: Nuclear stress test results were reviewed with the patient. No transient perfusion defect or ischemia noted. Severe fixed defect indicative of prior myocardial infarction noted involving the LV apex inferior and inferolateral wall. These results were reviewed with the patient in detail. Questions were answered. A 2D echocardiogram obtained was reviewed. Patient questions were answered. Patient informed that she has depressed LVEF. Patient at this time favors medical management. Patient also advised aggressive risk factor modification. Carotid artery disease: Continue aggressive risk factor modification and medical management. COPD: This is a significant problem. Patient has been advised to quit smoking but she is reluctant to do it. CAD: Will take this opportunity to optimize medical management. Patient's overall prognosis is guarded. Patient is status post CABG many years ago therefore could have progression of both graft and [place] vessel disease. Dyslipidemia: Continue with high potency statin therapy. Hypertension: Blood pressure goal is 140/90 or less. PVD: Patient has been advised to quit smoking. Patient would benefit from dual antiplatelet therapy if there are no contraindications. History of lung mass: Patient to be evaluated by oncologist. Patient wishes to postpone biopsy of the lung mass for several days. She just wants to go home. Tobacco abuse: Patient advised to quit smoking but very reluctant to give a commitment. Will try optimize medical management. Limiting factors or complaints and other comorbid diagnosis. Patient wishes to be discharged today. Wrote prescription for Ranexa 500 mg p.o. twice daily. Side effects were discussed. - Time Time with patient: Greater than 35 minutes - Patient was seen multiple times. Total time exceeds 40 minutes. In the morning nuclear stress test procedure, risks benefits, alternatives were discussed. Patient seen during the stress test. Patient also seen after stress test when results were discussed with the patient in detail. Patient's questions were answered. Nuclear stress test results were discussed with the patient. Patient was informed that no definitive evidence of pharmacologic stress-induced ischemia noted. Severe fixed defects were noted, this is indicative of severe scar. Patient informed that occasionally ischemia could be missed. However based on the current study results, would recommend aggressive risk factor modification and medical therapy. Patient informed that there is low threshold for cardiac catheterization and should be considered if she has increasing shortness of breath, significant cardiac dysrhythmia, recurrent chest pains. Right now, recommendations are for aggressive risk factor modification and medical management. CODE STATUS : was discussed, patient remains DO NOT RESUSCITATE. Surrogate decision-maker unchanged. Multiple medical problems were addressed. More than 50% of the time spent coordinating care, discussing management plans with involved caregivers. Management plans discussed with involved personnels. Medical decision making was of moderate to high complexity, patient's has multiple comorbidities. Medications reviewed and adjusted accordingly: Yes
--- NOTE | 2017-11-24 12:47 | DRAGON STRESS TEST REPORT ---
INTRAVENOUS LEXISCAN CARDIOLITE STRESS TEST USING SINGLE PHOTON EMMISION COMPUTERIZED TOMOGRAPHIC. DATE OF PROCEDURE: November 24, 2017, INDICATION : Chest pain CARDIAC RISK FACTORS: Diabetes, hypertension, dyslipidemia, tobacco abuse, previous stent placement and CABG RESTING EKG: Sinus rhythm, Q waves in inferior lead and lateral chest leads suggestive of prior myocardial infarction STRESS EKG: No significant ST segment changes noted with LexiScan bolus REASON FOR TERMINATION: Protocol. PROCEDURE REPORT: Baseline heart rate 83 beats per minute with blood pressure of 150/84. Patient had no significant complaints. Patient was bolused with Lexiscan 0.4 mg intravenously followed by saline bolus. Heart rate at 2 minutes post bolus 107 with a blood pressure of 151/79. 3 minutes post bolus heart rate 102 with blood pressure of 156/97. No significant EKG changes were noted. Patient had no significant complaints during the procedure or postprocedure. Patient injected with Aminophyllin 75 mg at 3 minutes or later after Lexiscan bolus. CONCLUSIONS: Normal EKG and hemodynamic response to IV LexiScan. NUCLEAR DATA: At rest the patient was given 10.83 millicuries of technetium 99 sestamibi injected intravenously. As per protocol rest gated SPECT images were obtained. On day of stress test, the patient was given intravenous LexiScan at a dose of 0.4 mg in 5 mL intravenously, followed by flush with normal saline. Subsequently the stress dose of 32.8 millicuries of technetium 99 sestamibi was injected intravenously. As per protocol stress gated images were obtained. NUCLEAR INTERPRETATION: Both raw and processed data were used for interpretation. Visual, qualitative, computer-generated quantitative data was used. There was good myocardial uptake of technetium compound. Motion artifact and soft tissue attenuations were noted. Increased visceral uptake was noted. No definitive areas of transient perfusion defect noted, area of severe fixed defect noted involving the LV apex, inferior and inferolateral wall of the left ventricle. EKG gated imaging showed LV EF at 19 %, rest and stress gated EF similar visually with diffuse hypokinesia, apical, inferior and inferolateral akinesia noted. T. I D. ratio was 1.03. Lung heart ratio noted to be within normal limits 0.30. No significant extracardiac and abnormal radiotracer activities were noted. RV free wall uptake was noted to be WNL. IMPRESSION: Also refer to comments under nuclear interpretation. Also test results needs to be interpreted in the context of pretest probability. 1. No definitive areas of transient perfusion defect noted. 2. Large area of severe fixed perfusion defect noted involving the LV apex, inferior and inferolateral wall indicative of severe scar of prior myocardial infarction. 3. EKG gated imaging shows left ventricular ejection fraction of approx. 19 %, mass diffuse hypokinesia with apical and inferior and inferolateral akinesia noted. 4. Clinical correlation requested as occasionally single vessel disease or balanced ischemia could be missed. In approximately 10% of the cases Lexiscan may not cause adequate vasodilatory stress. RECOMMENDATIONS: Aggressive risk factor modification and medical management. Further evaluation may be needed if continued symptoms or other high risk indicators are noted on clinical evaluation. Low threshold for heart catheterization. Close cardiology follow-up is also recommended. Clinical correlation with echocardiogram derived ejection fraction. Inability to exercise by itself can lead to increased cardiovascular event risks. Consider cardiology consultation and or follow-up if clinically indicated. I am available for cardiology evaluation and consultation if requested by the phlebotomy manager, unless patient already has a laundry presser. [place]
[2017-11-24] MEDS ORDERED: AMINOPHYLLINE INJ/PF 250 MG/10 ML SDV IV ONE (13:03)
[2017-11-24] MEDS ORDERED: REGADENOSON INJ 0.4 MG/5 ML DISP.SYRIN IV ONE (13:03)
[2017-11-24 15:29] VITALS: BP 119/64
--- NOTE | 2017-11-25 11:00 | PDOC DISCHARGE SUMMARY ---
General - Admit/Disc Date/PCP Admission Date/Primary Care Provider: 11/22/17 14:31 DANE SMITH MD Discharge Date: 11/24/17 - Discharge Diagnosis (1) Chest pain Is this a current diagnosis for this admission?: Yes Summary: Currently all resolved most likely a chest wall pain with a negative cardiac workup (2) Coronary artery disease Is this a current diagnosis for this admission?: Yes Summary: Currently follow with the Dr. Rodriguez or Dr. Trinh in [place] (3) Thoracic aneurysm without mention of rupture Is this a current diagnosis for this admission?: Yes Summary: Since currently see a vascular surgery at [place] current CT is stable (4) Lung mass Is this a current diagnosis for this admission?: Yes Summary: Patients refused for the bronchoscopy and biopsy and this admissions follow-up outpatients oncology and pulmonary (5) Chronic obstructive pulmonary disease Is this a current diagnosis for this admission?: Yes Summary: Patient still continues to smoke (6) Peripheral vascular disease Is this a current diagnosis for this admission?: Yes Summary: Patients follow outpatients vascular surgery (7) Carotid artery disease Is this a current diagnosis for this admission?: Yes (8) Cerebrovascular disease Is this a current diagnosis for this admission?: Yes Summary: Continue his aspirin and Plavix (9) Renal artery stenosis Is this a current diagnosis for this admission?: Yes Summary: Currently stable (10) Hypertension Is this a current diagnosis for this admission?: Yes Summary: This with the patient about very aggressive about the blood pressure was controlled low-sodium diet check her blood pressures daily which I doubt patient is going to do it with very noncompliance (11) Hyperlipidemia Is this a current diagnosis for this admission?: Yes (12) Congestive heart failure Is this a current diagnosis for this admission?: Yes Summary: Patient's EF is low continues to follow with the cardiology very closely discussed with the patient very aggressively (13) Non compliance with medical treatment Is this a current diagnosis for this admission?: Yes Summary: Patient is a very noncompliance he went did not want to stay in the hospital wants to go home patients refused for the bronchoscopy and patient on and things are going to quit the smoking patients pretty much saying she does not care patient understand about the pros and cons of all the medical problems with the complications Discussed with the daughter also myself so many times in the past and patient has always been noncompliance I hope the patient's continues to follow outpatient - Additional Information Resuscitation Status: Do Not Resuscitate Prescriptions: Amlodipine Besylate [Norvasc 5 mg Tablet] 5 mg PO QPM #30 tablet Cefdinir [Omnicef 300 mg Capsule] 1 cap PO BID #10 capsule Home Medications: Aspirin [Adult Low Dose Aspirin EC] 81 mg PO DAILY 11/22/17 Carvedilol [Coreg 6.25 mg Tablet] 6.25 mg PO Q12 11/22/17 Clopidogrel Bisulfate [Plavix 75 mg Tablet] 75 mg PO DAILY 11/22/17 Levothyroxine Sodium [Synthroid] 112 mcg PO Q6AM 11/22/17 Rosuvastatin Calcium [Crestor 10 mg Tablet] 10 mg PO DAILY 11/22/17 Amlodipine Besylate [Norvasc 5 mg Tablet] 5 mg PO QPM #30 tablet 11/24/17 Cefdinir [Omnicef 300 mg Capsule] 1 cap PO BID #10 capsule 11/24/17 History of Present Illness History of Present Illness: MIGUEL A WINSTON is a 72 year old female This is a 72-year-old female with a significant history of the coronary artery disease status post stent placements and status post bypass surgery very noncompliance used to see a [place] cardi[facility] and also history of the significant carotid artery disease status post carotid endarterectomyAnd a history of peripheral vascular disease status post femoropopliteal bypassHistory of the COPD and a continued smoker despite off so many times discussed with the patient and the daughter about multiple comorbidity with continued smoking causing the more complications but patients pretty much do not want to quit the smokingHistory of the thoracic aneurysm and currently see a [place] [facility] surgeryCame to the emergency department with the complaining of left mid back and chest pain and feel like when patient had a heart attacks in the past Initial workup including the EKG and cardiac enzymes 1 is negative and patient have a CT angiogram was done which is negative for any change in the thoracic aneurysm but patient have a new lung mass which is not that the CT of the chest in May 2017 Patient is currently denied any chest pain denied any shortness of the breath pt is very depressd and anxoius due to recent in family and not taking med as rx Hospital Course Hospital Course: This is a 72-year-old female basically present in the ER with the left side of the chest wall pain with the multiple medical problem patient admitting in the hospital cardiology consult was made and underwent for the echo and stress tests which negative for any acute finding except patient still have a low EF and a fixed defect According to the cardiology no need for any further intervention at this point aggressive risk management and follow outpatient Patient also found the lung mass and pulmonary and oncology was consulted and suggest a bronchoscopy and biopsy but patients do not want to stay in the hospital and do it and wants to go home Very extensively discussed with the patient about the diet blood pressure controlled and smoking counseling patient understand very well and Medications compliance We will send the prescriptions to the patient's pharmacy patient understand about not going for further testing's at this point related to multiple complications discussed with the patient's daughter also Physical Exam Vital Signs: Temp Pulse Resp BP Pulse Ox 98.8 F 80 16 119/64 94 11/24/17 15:44 11/24/17 15:44 11/24/17 15:44 11/24/17 15:44 11/24/17 15:44 Intake & Output 11/24/17 11/25/17 11/26/17 06:59 06:59 06:59 Intake Total 1266 Output Total 400 Balance 866 Weight 66.1 kg General appearance: PRESENT: no acute distress, well-developed, well-nourished Head exam: PRESENT: atraumatic, normocephalic Eye exam: PRESENT: conjunctiva pink, EOMI, PERRLA. ABSENT: scleral icterus Ear exam: PRESENT: normal external ear exam Mouth exam: PRESENT: moist, tongue midline Neck exam: PRESENT: full ROM. ABSENT: carotid bruit, JVD, lymphadenopathy, thyromegaly Respiratory exam: PRESENT: clear to auscultation nasreen Cardiovascular exam: PRESENT: RRR. ABSENT: diastolic murmur, rubs, systolic murmur Pulses: PRESENT: normal dorsalis pedis pul, +2 pedal pulses bilateral Vascular exam: PRESENT: normal capillary refill GI/Abdominal exam: PRESENT: normal bowel sounds, soft. ABSENT: distended, guarding, mass, organolmegaly, rebound, tenderness Rectal exam: PRESENT: deferred Extremities exam: ABSENT: pedal edema Musculoskeletal exam: PRESENT: ambulatory Neurological exam: PRESENT: alert, awake, oriented to person, oriented to place , oriented to time, oriented to situation, CN II-XII grossly intact. ABSENT: motor sensory deficit Psychiatric exam: PRESENT: appropriate affect, normal mood. ABSENT: homicidal ideation, suicidal ideation Skin exam: PRESENT: dry, intact, warm. ABSENT: cyanosis, rash Results Laboratory Results: 11/24/17 05:31 11/23/17 03:26 11/22/17 11/22/17 11/22/17 15:45 15:45 21:20 Creatine Kinase 110 113 CK-MB (CK-2) 1.39 Troponin I 0.013 NT-Pro-B Natriuret Pep 11/22/17 11/23/17 11/23/17 21:20 03:26 03:26 Creatine Kinase 109 CK-MB (CK-2) 1.67 1.58 Troponin I 0.017 0.016 NT-Pro-B Natriuret Pep 3290 H Impressions: Chest X-Ray 11/22/17 11:19 IMPRESSION: NO ACUTE RADIOGRAPHIC FINDING IN THE CHEST. Chest/Abdomen CTA 11/22/17 13:58 IMPRESSION: 2.2 x 1.9 cm mass in the lower right hilum/right lower lobe worrisome for malignancy Minimal ground-glass opacity in the upper lobes bilaterally, question pneumonitis or very mild pulmonary edema Ectatic distal thoracic aorta with a rind of mural thrombus. This is similar compared to previous studies. Qualifiers - * PATEINT BEING DISCHARGED WITH ANY OF THE FOLLOWING DIAGNOSIS?: No VTE patient discharged on overlapping Therapy?: Yes Plan Time Spent: Greater than 30 Minutes - Follow outpatients cardiology and pulmonary and oncology and following office 1 week
== END 2017-11-24 16:03 | disposition home or self-care (01) | DRG 204 ==
LOC: ER 10:54 → EH 14:31 → UNDOADMOB 14:31 → OBSVTOIN 14:31 → 3S 19:55 → EH 19:55 → UNDODISIN 11-24 16:03
PROVIDERS: ADMIT Family Medicine; ATTEND Family Medicine
DX: R91.8 Other nonspecific abnormal finding of lung field (principal); I50.22 Chronic systolic (congestive) heart failure; M25.512 Pain in left shoulder; E11.9 Type 2 diabetes mellitus without complications; R07.9 Chest pain, unspecified; K21.9 Gastro-esophageal reflux disease without esophagitis; I71.2 Thoracic aortic aneurysm, without rupture; J44.9 Chronic obstructive pulmonary disease, unspecified; I70.1 Atherosclerosis of renal artery; I25.10 Atherosclerotic heart disease of native coronary artery without angina pectoris; Z66 Do not resuscitate; I67.9 Cerebrovascular disease, unspecified; F17.210 Nicotine dependence, cigarettes, uncomplicated; I25.2 Old myocardial infarction; Z79.01 Long term (current) use of anticoagulants; Z79.82 Long term (current) use of aspirin; Z79.899 Other long term (current) drug therapy; Z91.14 Patient's other noncompliance with medication regimen
CPT/HCPCS: 36415; 71046; 71275; 78452; 80053; 82550; 82553; 83880; 84443; 84484; 85025; 87040; 87070; 87086; 87205; 93005; 93010; 93017; 93306; 94640; 99285; A9500; J0280; J0692; J1644; J2785; J7620; Q9969

== ENCOUNTER → 2017-12-11 | Outpatient (CLI) | payer MEDICARE, MEDICAID ==
--- NOTE | 2017-12-14 14:46 | RADIOLOGY REPORT (SQ) ---
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 RADIONUCLIDE AND DOSE: 10.44 mCi F18 FDG The route of agent administration: Intravenous FASTING BLOOD SUGAR: 105 mg/dl CONTRAST TYPE AND DOSE: No CT contrast given. TECHNIQUE: Blood glucose level was verified. Above dose of FDG was injected intravenously. 2-D seg mented attenuation correction images were obtained from the base of the skull to the midthighs. Nonc ontrast CT images were obtained for attenuation correction and fusion with emission images. CT image s were performed without oral or intravenous contrast and are not sensitive for parenchymal lesions. A series of overlapping emission PET images were obtained. Images reviewed and manipulated at [facility] work station by the radiologist. Images stored on PACS. LIMITATIONS: None. FINDINGS: HEAD AND NECK: No areas of abnormal metabolic activity in the soft tissues of the head and neck. CHEST: Hypermetabolic pulmonary nodule right lower lobe measuring 2.1 x 2.6 cm in AP by transverse di ameter and 8.7 mean SUV. ABDOMEN AND PELVIS: No areas of abnormal metabolic activity in the abdomen or pelvis. Expected physi ologic activity is present in the genitourinary system and bowel. PROXIMAL LOWER EXTREMITIES: No areas of abnormal metabolic activity in the soft tissues of the lower extremities. BONES: No abnormal metabolic activity in the visualized skeleton. ADDITIONAL CT FINDINGS: 3.2 cm infrarenal aortic aneurysm. Mildly dilated distal thoracic aorta. Pr ior CABG. OTHER: No other significant findings. IMPRESSION: Hypermetabolic pulmonary nodule right lower lobe. TECHNICAL DOCUMENTATION: JOB ID: [id number]- All Rights Reserved Reading location - IP/workstation name: [email or web address]
== END ==
LOC: RAD 17:05
PROVIDERS: ATTEND Internal Medicine
DX: C34.31 Malignant neoplasm of lower lobe, right bronchus or lung (principal)
CPT/HCPCS: 78815; A9552